=== PATIENT | female | born 1940 | race Caucasian/White ===

== ENCOUNTER → 2018-05-23 09:30 | Outpatient (CLI) | payer MEDICARE, OTHER, SELFPAY ==
[2018-05-23 10:28] LABS: Add Manual Diff / Slide Review NO; Basophils Percent Auto 1.2 % (0-2); Eosinophils Percent Auto 2.4 % (2-4); Hematocrit 38.8 % (36-46); Hemoglobin 13.1 g/dL (12.0-16.0); Lymphocytes Percent Auto 24.6 % (25-40); Mean Corpuscular HGB Conc 33.9 % (30-36); Mean Corpuscular Hemoglobin 31.5 PG (26-34); Monocytes Percent Auto 11.5 % (3-14); Neutrophils Absolute Auto 3500 /uL (3000-5900); Neutrophils Percent Auto 60.3 % (50-75); Platelet Count 284 X10^3/uL (150-400); Red Blood Cell Count 4.17 X10^6/uL (4.0-5.2); Red Cell Distribution Width 12.5 % (11.6-14.8); White Blood Cell Count 5.8 X10^3/uL (4.5-11.0)
[2018-05-23 11:03] LABS: Alanine Aminotransferase 26 IU/L (9-52); Albumin 4.5 g/dL (3.5-5.0); Albumin Globulin Ratio 1.3 (1.0-2.8); Alkaline Phosphatase 94 U/L (38-126); Aspartate Aminotransferase 25 IU/L (14-36); BUN Creatinine Ratio 21.3 (6-22); Bilirubin Total 0.7 mg/dL (0.2-1.3); Blood Urea Nitrogen 17 mg/dL (7-17); Calcium 9.9 mg/dL (8.4-10.2); Carbon Dioxide 29 mmol/L (22-32); Chloride 98 mmol/L (98-107); Cholesterol 228 mg/dL (140-199); Estimated Glomerular Filt Rate > 60.0 mL/min (>60); Globulin 3.4 g/dL (1.7-4.1); Glucose 95 mg/dL (80-110); HDL Cholesterol 85 mg/dL (40-60); HEMOLYSIS < 15 (0-50); LDL Cholesterol Calculated 128 mg/dL (<100); Potassium 5.3 mmol/L (3.4-5.1); Sodium 137 mmol/L (137-145); Total Protein 7.9 g/dL (6.3-8.2); Triglycerides 77 mg/dL (35-150)
[2018-05-23 11:32] LABS: TSH w/ Reflex to FT4 2.24 uIU/mL (0.47-4.68)
== END ==
PROVIDERS: PCP Family Medicine; Visit Provider Family Medicine
DX: E03.9 Hypothyroidism, unspecified (principal); E78.5 Hyperlipidemia, unspecified; I10 Essential (primary) hypertension
CPT/HCPCS: 36415; 80053; 80061; 84443; 85025

== ENCOUNTER → 2018-08-24 15:00 | Outpatient (CLI) | payer MEDICARE, OTHER, SELFPAY | PROVIDERS: Family Provider Family Medicine; PCP Family Medicine | DX: Z23 Encounter for immunization (principal) | CPT/HCPCS: 90471; 90662 ==

== ENCOUNTER → 2018-11-30 10:56 | Outpatient (CLI) | payer MEDICARE, OTHER, SELFPAY ==
--- NOTE | 2018-11-30 10:30 | DI.MG.S_ITS ---
Patient Name: YOLIE MAE date: 1940 Sex: F Attending Physician: Maxim Indications: Date: 11/30/2018 11:10 At the request of: BRANDI HELMS Procedure: MM screening mammo unilat LT UNILATERAL LEFT DIGITAL SCREENING MAMMOGRAM 3D/2D WITH CAD POST MASTECTOMY: 11/30/2018 CLINICAL: Routine screening. Personal history of breast cancer; status post right mastectomy. Comparison is made to exams dated: 11/01/2017 mammogram, 10/07/2016 mammogram, and 10/06/2015 mammogram - [facility]. There are scattered fibroglandular elements in left breast. Current study was also evaluated with a Computer Aided Detection (CAD) system. There are stable benign vascular calcifications in the left breast. No significant masses, calcifications, or other findings are seen in the breast. There has been no significant interval change. IMPRESSION: There is no mammographic evidence of malignancy. A 1 year screening mammogram is recommended. This exam was interpreted at Station ID: [id number]. NOTE: For mammograms, a report in lay terms will be sent to the patient. Approximately 15% of breast malignancies will not be visualized mammographically. In the management of a palpable breast mass, a negative mammogram must not discourage biopsy of a clinically suspicious lesion. Electronically Signed By: Erick han/soila:11/30/2018 11:49:56 letter sent: Normal Exam ACR BI-RADS Category 2: Benign Finding(s) 3342F
== END ==
PROVIDERS: PCP Family Medicine; Visit Provider Family Medicine
DX: Z12.31 Encounter for screening mammogram for malignant neoplasm of breast (principal); Z85.3 Personal history of malignant neoplasm of breast
CPT/HCPCS: 77063; 77067

== ENCOUNTER → 2018-12-01 09:27 | Outpatient (CLI) | payer MEDICARE, OTHER, SELFPAY ==
--- NOTE | 2018-12-01 09:38 | DI.CT.S_ITS ---
PROCEDURE: CT SINUS SCREEN WO CON INDICATIONS: sinus pain TECHNIQUE: Noncontrast 3.0 mm axial images acquired from the frontal sinuses to the mid-sella, with coronal and sagittal reformats. For radiation dose reduction, the following was used: automated exposure control, adjustment of mA and/or kV according to patient size. COMPARISON: None. FINDINGS: Image quality: Excellent. Maxillary Sinuses: No bony remodeling or destruction. Sinuses are clear. Ethmoid Air Cells: No bony remodeling or destruction. Sinuses are clear. Sphenoid Sinuses: No bony remodeling or destruction. Mild mucosal thickening can be seen within the sphenoid sinuses. Frontal Sinuses: The frontal sinuses are poorly developed. Ostiomeatal Complexes: Ostiomeatal complexes are patent. No Kirsten cells. Miscellaneous: Visualized intra-orbital contents are normal. The right middle turbinate is deviated laterally. There is moderate leftward nasal septal deviation. IMPRESSION: Mild mucosal thickening within sphenoid sinuses. There is moderate leftward nasal septal deviation and the right middle turbinate is deviated laterally. Dictated by: Guillaume Paez M.D. on 12/01/2018 at 9:22 Approved by: Guillaume Paez M.D. on 12/01/2018 at 9:24
== END ==
PROVIDERS: Family Provider Family Medicine; PCP Family Medicine; Visit Provider Family Medicine
DX: J32.3 Chronic sphenoidal sinusitis (principal); J34.2 Deviated nasal septum
CPT/HCPCS: 70486

== ENCOUNTER → 2019-02-14 11:45 | Outpatient (CLI) | payer MEDICARE, OTHER, SELFPAY ==
[2019-02-14 12:37] LABS: Erythrocyte Sedimentation Rate 16 MM/HR (0-20)
== END ==
PROVIDERS: Family Provider Family Medicine; PCP Family Medicine; Visit Provider Family Medicine
DX: R51 Headache (principal)
CPT/HCPCS: 36415; 85651

== ENCOUNTER → 2019-02-21 18:41 | Outpatient (CLI) | payer MEDICARE, OTHER, SELFPAY ==
--- NOTE | 2019-02-21 18:42 | DI.MRI.S_ITS ---
PROCEDURE: MR HEAD/BRAIN WO CON INDICATIONS: daily headaches TECHNIQUE: Non-contrast axial T1 spin echo, axial T2 fast spin echo, sagittal and axial FLAIR, coronal T2 fast spin echo, axial gradient echo, axial diffusion and ADC through the brain. COMPARISON: [facility], CT, CT SINUS SCREEN WO CON, 12/01/2018, 9:29. FINDINGS: Image quality: Excellent. CSF spaces: Ventricles appear symmetric in size and shape. Basal cisterns are patent. No extra-axial fluid collections. 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 Old lacunar infarcts noted in the left insula and right thalamus. No intracranial bleeds or mass effects. There is mild cerebral volume loss for age. There are mild periventricular and deep white matter chronic small vessel ischemic changes. Brainstem appears normal. Diffusion-weighted images show no acute ischemic insults. No chronic ischemic insults. Normal intravascular flow voids are present. Skull and face: Calvarial bone marrow is normal in signal. Orbits are normal. Sinuses: There is ethmoid sinus because of thickening. Mastoids are clear. IMPRESSION: 1. No acute intracranial abnormalities. 2. 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 In addition, there are old lacunar infarcts in the left insula and right thalamus. 3. Mild cerebral volume loss and chronic microvascular ischemic changes. Dictated by: Jay Coley M.D. on 02/22/2019 at 8:59 Approved by: Jay Coley M.D. on 02/22/2019 at 9:05
== END ==
PROVIDERS: Family Provider Family Medicine; PCP Family Medicine; Visit Provider Family Medicine
DX: R51 Headache (principal)
CPT/HCPCS: 70551

== ENCOUNTER → 2019-06-08 09:23 | Outpatient (CLI) | payer MEDICARE, OTHER, SELFPAY ==
[2019-06-08 10:07] LABS: Add Manual Diff / Slide Review NO; Basophils Absolute Auto 100 /uL (0-100); Basophils Percent Auto 1.2 % (0-2); Eosinophils Absolute Auto 100 /uL (0-450); Eosinophils Percent Auto 2.6 % (2-4); Hematocrit 38.1 % (36-46); Hemoglobin 12.9 g/dL (12.0-16.0); Lymphocytes Absolute Auto 1400 /uL (1100-4500); Lymphocytes Percent Auto 25.6 % (25-40); Mean Corpuscular Hemoglobin 31.5 PG (26-34); Mean Corpuscular Volume 92.8 fL (80-100); Monocytes Absolute Auto 500 /uL (0-900); Monocytes Percent Auto 9.8 % (3-14); Neutrophils Absolute Auto 3400 /uL (1500-7000); Neutrophils Percent Auto 60.8 % (50-75); Platelet Count 256 X10^3/uL (150-400); White Blood Cell Count 5.6 X10^3/uL (4.5-11.0)
[2019-06-08 10:33] LABS: Alanine Aminotransferase 18 IU/L (9-52); Albumin 4.3 g/dL (3.5-5.0); Albumin Globulin Ratio 1.4 (1.0-2.8); Alkaline Phosphatase 94 U/L (38-126); Aspartate Aminotransferase 25 IU/L (14-36); BUN Creatinine Ratio 26.3 (6-22); Bilirubin Total 0.8 mg/dL (0.2-1.3); Blood Urea Nitrogen 21 mg/dL (7-17); Calcium 10.2 mg/dL (8.4-10.2); Carbon Dioxide 27 mmol/L (22-32); Chloride 103 mmol/L (98-107); Cholesterol 269 mg/dL (140-199); Estimated Glomerular Filt Rate > 60.0 mL/min (>60); Globulin 3.1 g/dL (1.7-4.1); Glucose 91 mg/dL (80-110); HDL Cholesterol 78 mg/dL (40-60); LDL Cholesterol Calculated 162 mg/dL (<100); Sodium 138 mmol/L (137-145); Total Protein 7.4 g/dL (6.3-8.2); Triglycerides 144 mg/dL (35-150)
[2019-06-08 10:51] LABS: HEMOLYSIS < 15 (0-50); Potassium 5.6 mmol/L (3.4-5.1)
[2019-06-08 11:02] LABS: Thyroid Stimulating Hormone 2.79 uIU/mL (0.47-4.68)
== END ==
PROVIDERS: PCP Family Medicine; Visit Provider Family Medicine
DX: E03.9 Hypothyroidism, unspecified (principal); E78.5 Hyperlipidemia, unspecified; I10 Essential (primary) hypertension
CPT/HCPCS: 36415; 80053; 80061; 84443; 85025

== ENCOUNTER → 2019-06-12 11:57 | Outpatient (CLI) | payer MEDICARE, OTHER, SELFPAY ==
[2019-06-12 12:31] LABS: BUN Creatinine Ratio 21.3 (6-22); Blood Urea Nitrogen 17 mg/dL (7-17); Calcium 9.8 mg/dL (8.4-10.2); Carbon Dioxide 29 mmol/L (22-32); Chloride 99 mmol/L (98-107); Estimated Glomerular Filt Rate > 60.0 mL/min (>60); Glucose 92 mg/dL (80-110); HEMOLYSIS < 15 (0-50); Potassium 4.8 mmol/L (3.4-5.1); Sodium 137 mmol/L (137-145)
== END ==
PROVIDERS: PCP Family Medicine; Visit Provider Family Medicine
DX: E87.5 Hyperkalemia (principal)
CPT/HCPCS: 36415; 80048

== ENCOUNTER 2019-08-02 08:21 | Emergency (ER) | payer MEDICARE, OTHER, SELFPAY ==
[2019-08-02] VITALS (8 sets, daily range): BP systolic 156–179; BP diastolic 69–92; PULSE 54–85; RESP 12–16; TEMP 36.1–36.7; O2SAT 95–100; BMI 23.8
--- NOTE | 2019-08-02 08:32 | DI.RAD.S_ITS ---
PROCEDURE: XR CHEST 1V INDICATIONS: chest pain TECHNIQUE: One view of the chest was acquired. COMPARISON: [facility], CHEST 2 VIEW, 03/04/2009, 10:44. [facility], CHEST 1 VIEW, 06/26/2013, 17:03. FINDINGS: Surgical changes and devices: Surgical clips over right hemithorax. Lungs and pleura: Lungs are clear. No pleural effusions or pneumothorax. Mediastinum: Mediastinal contours appear normal. Heart size is normal. Bones and chest wall: No suspicious bony lesions. Overlying soft tissues appear unremarkable. IMPRESSION: No evidence acute pulmonary process. Dictated by: Alessandro Castillo M.D. on 08/02/2019 at 9:21 Approved by: Alessandro Castillo M.D. on 08/02/2019 at 9:22
[2019-08-02 08:44] LABS: Add Manual Diff / Slide Review NO; Basophils Absolute Auto 100 /uL (0-100); Basophils Percent Auto 0.6 % (0-2); Eosinophils Absolute Auto 100 /uL (0-450); Hematocrit 36.7 % (36-46); Hemoglobin 12.3 g/dL (12.0-16.0); Lymphocytes Absolute Auto 2300 /uL (1100-4500); Lymphocytes Percent Auto 23.1 % (25-40); Mean Corpuscular HGB Conc 33.5 % (30-36); Mean Corpuscular Hemoglobin 31.5 PG (26-34); Mean Corpuscular Volume 94.1 fL (80-100); Monocytes Absolute Auto 800 /uL (0-900); Monocytes Percent Auto 8.4 % (3-14); Neutrophils Absolute Auto 6500 /uL (1500-7000); Neutrophils Percent Auto 66.9 % (50-75); Platelet Count 267 X10^3/uL (150-400); Red Cell Distribution Width 13.1 % (11.6-14.8); White Blood Cell Count 9.8 X10^3/uL (4.5-11.0)
[2019-08-02 08:50] LABS: INR 0.9 (0.9-1.3)
[2019-08-02 08:53] LABS: PTT Partial Thromboplastin Tim 30 SECONDS (26.4-36.2)
[2019-08-02 08:57] LABS: Bacteria Urine None Seen; RBC Urine None Seen (0-5/HPF)
[2019-08-02 09:01] LABS: Alanine Aminotransferase 15 IU/L (9-52); Albumin 4.5 g/dL (3.5-5.0); Albumin Globulin Ratio 1.4 (1.0-2.8); Alkaline Phosphatase 79 U/L (38-126); Aspartate Aminotransferase 27 IU/L (14-36); Bilirubin Total 0.8 mg/dL (0.2-1.3); Blood Urea Nitrogen 24 mg/dL (7-17); Calcium 9.7 mg/dL (8.4-10.2); Carbon Dioxide 25 mmol/L (22-32); Chloride 102 mmol/L (98-107); Creatine Kinase 49 U/L (30-135); Estimated Glomerular Filt Rate > 60.0 mL/min (>60); Globulin 3.3 g/dL (1.7-4.1); Glucose 86 mg/dL (80-110); HEMOLYSIS 43 (0-50); Lipase 155 U/L (23-300); Potassium 4.3 mmol/L (3.4-5.1); Sodium 139 mmol/L (137-145); Total Protein 7.8 g/dL (6.3-8.2)
[2019-08-02 09:08] LABS: Culture Indicated Urine Cult Not Indicated; Transitional Epi Cells Urine 1-5/HPF (0-5/HPF); WBC Urine 1-5/HPF (0-5/HPF)
[2019-08-02 09:13] LABS: Troponin I < 0.012 ng/mL (0.01-0.034)
--- NOTE | 2019-08-02 09:28 | ED_ITS ---
HPI - Chest Pain General Chief Complaint: Chest Pain Stated Complaint: upper abdominal pain, chills, HBP Time Seen by Provider: 08/02/19 08:40 Source: patient Mode of arrival: ambulatory Limitations: no limitations History of Present Illness HPI narrative: Patient comes emergency department complaining pain in her left upper abdomen/lower chest, though she does states she feels the pain is coming more from her stomach than from her chest. She states that she does feel the pain wrap around to her back somewhat, but it is mostly in the front. This has been going on for about 3 days. Patient denies fevers or chills, cough, shortness of breath, or upper respiratory symptoms. She denies any nausea vomiting. Patient states she has no known history of heart problems or peptic ulcer disease. She does have a history of reflux occasionally. Patient denies any diarrhea. No blood in her stools or melena. No history of gallbladder issues. Patient denies any exacerbating or remitting factors. She states that the pain seems to wax and wane, but has been fairly constant for the last 3 days. No prior history of this. No other complaints at this time. Patient denies any history of diabetes. 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 She is currently on losartan for high blood pressure, but denies a diagnosis of hyperlipidemia, though she does note that her last cholesterol levels were borderline. Patient denies family history of coronary artery disease. Related Data Home Medications Medication Instructions Recorded Confirmed calcium carbonate 500 mg PO DAILY #0 03/28/12 08/02/19 cholecalciferol (vitamin D3) 2,000 unit PO DAILY #0 03/28/12 08/02/19 [Vitamin D3] aspirin 81 mg tablet,delayed 81 mg PO DAILY 04/24/19 08/02/19 release levothyroxine 50 mcg PO DAILY 08/02/19 08/02/19 prednisone See Rx Instructions .ROUTE .COMPLEX 08/02/19 08/02/19 Previous Rx's Medication Instructions Recorded losartan 50 mg tablet 50 mg PO DAILY #90 tab 06/11/19 sertraline 50 mg tablet 50 mg PO DAILY #90 tab 06/11/19 omeprazole 20 mg PO DAILY #14 cap 08/02/19 Allergies Allergy/AdvReac Type Severity Reaction Status Date / Time No Known Drug Allergies Allergy Verified 08/02/19 08:30 Review of Systems Constitutional Constitutional: Denies chills, Denies fatigue, Denies fever(s), Denies frequent falls, Denies lethargy and Denies weakness Eyes Eyes: Denies change in vision, Denies eye discharge, Denies irritation and Denies loss of vision ENT Ears, Nose, Mouth, and Throat: Denies change in voice, Denies dizziness, Denies neck pain, Denies sore throat and Denies throat swelling Cardiovascular Cardiovascular: Reports chest pain, Denies irregular heart rhythm, Denies lightheadedness, Denies palpitations, Denies dyspnea, Denies dyspnea on exertion and Denies orthopnea Respiratory Respiratory: Denies cough, Denies dyspnea, Denies dyspnea on exertion and Denies wheezing Gastrointestinal Gastrointestinal: Reports abdominal pain, Denies change in bowel habits, Denies diarrhea, Denies nausea and Denies vomiting Genitourinary Genitourinary: Denies hematuria, Denies flank pain, Denies urinary incontinence and Denies urinary urgency Musculoskeletal Musculoskeletal: Denies back pain, Denies muscle weakness, Denies neck pain, Denies numbness and Denies tingling Integumentary/Breasts Skin/Breast: Denies pruritus, Denies erythema, Denies rash and Denies wounds Neurologic Neurologic: Denies behavioral changes, Denies confusion, Denies dizziness, Denies frequent falls, Denies loss of vision, Denies numbness, Denies tingling and Denies weakness Psychiatric Psychiatric: Denies anxiety, Denies behavioral changes, Denies confusion, Denies depression, Denies homicidal ideation and Denies suicidal ideation Endocrine Endocrine: Denies fatigue, Denies flushing and Denies palpitations Hematologic/Lymphatic Hematologic/Lymphatic: Denies easy bruising Allergic/Immunologic Allergic/Immunologic: Denies urticaria, Denies throat swelling and Denies wheezing [facility] Medical History (Updated 08/02/19 @ 12:17 by Airam Jones MD) Breast cancer (Chronic ~1987) Chicken pox (Resolved) Depression (Chronic ~2000) Hypertension (Chronic ~2009) Hypothyroidism (Chronic ~1998) Measles (Resolved) Osteoarthritis (Chronic ~2005) Osteopenia (Chronic) Osteoporosis (Chronic ~2010) Psoriasis (Chronic ~1979) Surgical History (Updated 05/26/18 @ 08:29 by Lynnette Hua) Anesthesia (Resolved) History of breast augmentation Status post partial mastectomy (~1987) Status post thoracotomy (~1995) Status post tubal ligation (~1978) Status post wrist surgery (Resolved) Family History (Updated 05/26/18 @ 08:33 by Lynnette Hua) Father Hypertension Cerebral hemorrhage Mother Alzheimers disease Grandfather Diabetes mellitus Grandmother Stroke Sister Age: 68 Breast cancer Grandfather TB (tuberculosis) Social History Smoking Status: Never smoker alcohol intake: current substance use type: does not use Family History (Updated 05/26/18 @ 08:33 by Lynnette Hua) Father Hypertension Cerebral hemorrhage Mother Alzheimers disease Grandfather Diabetes mellitus Grandmother Stroke Sister Age: 68 Breast cancer Grandfather TB (tuberculosis) Social History Smoking Status: Never smoker alcohol intake: current substance use type: does not use Exam Initial Vital Signs Initial Vital Signs: Vital Signs Temperature 97.0 F L 08/02/19 08:30 Pulse Rate 85 08/02/19 08:30 Respiratory Rate 16 08/02/19 08:30 Blood Pressure 177/89 H 08/02/19 08:30 Const General: cooperative and well developed Nutritional Appearance: well nourished Orientation: alert, awake, oriented x3 and not confused [facility] Head: normocephalic and atraumatic Ears: external ears normal Nose: external nose normal and No nasal discharge Face and sinus: face symmetric and No dry mucous membranes Mouth: oral mucosae normal and moist mucous membranes Teeth and gingiva: dentition normal Eyes General: appearance normal, both eyes and all related structures Eyelids: eyelids normal Conjunctivae: conjunctivae normal Sclera: sclerae normal Pupils: PERRL EOM: EOM intact bilaterally Neck Neck: normal visual inspection, trachea midline, No lymphadenopathy, No midline deformity and No JVD Lymphatic: No lymphedema Chest Chest: normal inspection of the chest Resp Effort & Inspection: normal respiratory effort, able to speak in complete sentences, no respiratory distress and no use of accessory muscles Auscultation: clear to auscultation bilaterally, no rales, no rhonchi and no wheezes Cardio Rate: regular rate Rhythm: regular rhythm Heart Sounds: no click, no gallops, no murmurs and no rubs Pulses: normal peripheral pulses GI Inspection: non-distended Palpation: soft, no hepatosplenomegaly, No guarding, No pulsatile mass and tender (Mild, left upper quadrant) Auscultation: normal bowel sounds Back/Spine/Pelvis Back: No CVA tenderness Cervical Spine: cervical ROM normal and No pain with cervical ROM Thoracic/Lumbar Spine: thoracic and lumbar spine normal to inspection Skin General: no rashes or lesions noted, No jaundice and No petechiae Neuro General: alert, oriented x3, gait normal and no focal motor deficits Speech: speech normal Extrem General: full ROM, no clubbing, cyanosis or edema, no pedal edema and no calf tenderness Psych Appearance: well kempt Mental Status: mental status grossly normal Attitude: cooperative Thought Content: normal and suicidality Judgment: judgment good Course Course Course Narrative: Patient was worked up with labs initially. She declined any analgesia in the emergency department. Labs were unremarkable. CT scan of the abdomen and pelvis was performed to further evaluate the patient's symptoms, and this showed a nonspecific left lung nodule and a small and of uncertain significance, but not felt to likely be malignant by radiologist. I did inform the patient of this finding. Patient was also noted to have a thickened portion of her large bowel wall, but the significance of this is uncertain. Radiologist did note this could be normal physiologic finding. I discussed both findings with the patient. The patient has been afebrile and without any symptoms of illness beyond the upper abdominal/lower chest pain. She has not had any diarrhea or blood in her stools, and at this point, I am not going to treat this as colitis. The patient did have a repeat troponin done and this was also negative. I discussed with the patient that it is likely a good idea to follow up in the near future with her primary care physician to discuss referral for EGD and also, to have a stress test scheduled. Patient states she will do this. We have discussed home management of symptoms, as well as the usual indications for return. Orders Ordered: ED Orders 08/02/19 08:29 EKG-12 Lead Stat 08/02/19 08:30 Complete Blood Count AUTO DIFF Stat Comprehensive Metabolic Panel Stat Lipase Stat Partial Thromboplastin Time Stat Prothrombin Time INR Stat Troponin & CK Cardiac Panel Stat Urine Microscopic Stat 08/02/19 08:32 XR chest 1V Stat Vital Signs Vital signs: Vital Signs - 8 hr 08/02/19 08:30 08/02/19 08:43 08/02/19 09:00 Temperature 97.0 F L 98.0 F Pulse Rate 85 60 Respiratory Rate 16 16 Blood Pressure 177/89 H Blood Pressure [Right Arm] 179/92 H Pulse Oximetry 98 100 MDM - Chest Pain Medical Records Data Attestation: I reviewed the patient's medical records. Lab Data Attestation: I reviewed the patient's lab results. Result diagrams: 08/02/19 08:30 08/02/19 08:30 Labs: Lab Results 08/02/19 08/02/19 08/02/19 Range/Units 08:30 08:30 08:30 WBC 9.8 (4.5-11.0) X10^3/uL RBC 3.90 L (4.0-5.2) X10^6/uL Hgb 12.3 (12.0-16.0) g/dL Hct 36.7 (36-46) % MCV 94.1 (80-100) fL MCH 31.5 (26-34) PG MCHC 33.5 (30-36) % RDW 13.1 (11.6-14.8) % Plt Count 267 (150-400) X10^3/uL Neut % (Auto) 66.9 (50-75) % Lymph % (Auto) 23.1 L (25-40) % [place] % (Auto) 8.4 (3-14) % Eos % (Auto) 1.0 L (2-4) % Baso % (Auto) 0.6 (0-2) % Neut # (Auto) 6500 (4715-7096) /uL Lymph # (Auto) 2300 (9531-0869) /uL [place] # (Auto) 800 (0-900) /uL Eos # (Auto) 100 (0-450) /uL Baso # (Auto) 100 (0-100) /uL PT 10.0 L (10.1-12.7) SECONDS INR 0.9 (0.9-1.3) APTT 30 (26.4-36.2) SECONDS Sodium 139 (137-145) mmol/L Potassium 4.3 (3.4-5.1) mmol/L Chloride 102 (98-107) mmol/L Carbon Dioxide 25 (22-32) mmol/L BUN 24 H (7-17) mg/dL Creatinine 0.80 (0.52-1.04) mg/dL Estimated GFR > 60.0 (>60) mL/min BUN/Creatinine Ratio 30.0 H (6-22) Glucose 86 (80-110) mg/dL Calcium 9.7 (8.4-10.2) mg/dL Total Bilirubin 0.8 (0.2-1.3) mg/dL AST 27 (14-36) IU/L ALT 15 (9-52) IU/L Alkaline Phosphatase 79 (38-126) U/L Total Creatine Kinase 49 (30-135) U/L CK-MB (CK-2) TNP CK-MB (CK-2) Rel Index TNP Troponin I < 0.012 (0.01-0.034) ng/mL Total Protein 7.8 (6.3-8.2) g/dL Albumin 4.5 (3.5-5.0) g/dL Globulin 3.3 (1.7-4.1) g/dL Albumin/Globulin Ratio 1.4 (1.0-2.8) Lipase 155 (23-300) U/L Urine RBC (0-5/HPF) Urine WBC (0-5/HPF) Ur Transition Epith Cell (0-5/HPF) Urine Bacteria (None) Ur Culture Indicated? 08/02/19 08/02/19 Range/Units 08:30 10:57 WBC (4.5-11.0) X10^3/uL RBC (4.0-5.2) X10^6/uL Hgb (12.0-16.0) g/dL Hct (36-46) % MCV (80-100) fL MCH (26-34) PG MCHC (30-36) % RDW (11.6-14.8) % Plt Count (150-400) X10^3/uL Neut % (Auto) (50-75) % Lymph % (Auto) (25-40) % [place] % (Auto) (3-14) % Eos % (Auto) (2-4) % Baso % (Auto) (0-2) % Neut # (Auto) (4738-3744) /uL Lymph # (Auto) (8167-7405) /uL [place] # (Auto) (0-900) /uL Eos # (Auto) (0-450) /uL Baso # (Auto) (0-100) /uL PT (10.1-12.7) SECONDS INR (0.9-1.3) APTT (26.4-36.2) SECONDS Sodium (137-145) mmol/L Potassium (3.4-5.1) mmol/L Chloride (98-107) mmol/L Carbon Dioxide (22-32) mmol/L BUN (7-17) mg/dL Creatinine (0.52-1.04) mg/dL Estimated GFR (>60) mL/min BUN/Creatinine Ratio (6-22) Glucose (80-110) mg/dL Calcium (8.4-10.2) mg/dL Total Bilirubin (0.2-1.3) mg/dL AST (14-36) IU/L ALT (9-52) IU/L Alkaline Phosphatase (38-126) U/L Total Creatine Kinase (30-135) U/L CK-MB (CK-2) CK-MB (CK-2) Rel Index Troponin I < 0.012 (0.01-0.034) ng/mL Total Protein (6.3-8.2) g/dL Albumin (3.5-5.0) g/dL Globulin (1.7-4.1) g/dL Albumin/Globulin Ratio (1.0-2.8) Lipase (23-300) U/L Urine RBC None seen (0-5/HPF) Urine WBC 1-5/hpf (0-5/HPF) Ur Transition Epith Cell 1-5/hpf (0-5/HPF) Urine Bacteria None seen (None) Ur Culture Indicated? Cult not indicated Urine Dip Bedside Urine Glucose Negative Bedside Urine Bilirubin - Negative Bedside Urine Ketone - Negative Urine Specific [place] 1.015 Bedside Urine Occult Blood - Negative Bedside Urine pH 6.5 Bedside Urine Protein +/- 15 Bedside Urine Urobilinogen - Negative Bedside Urine Nitrite - Negative Bedside Urine Leukocytes + [address] scan - abdomen: Radiologist's impression: PROCEDURE: CT ABDOMEN PELVIS W CON INDICATIONS: L side abdominal pain TECHNIQUE: After the administration of intravenous contrast, 5 mm thick sections acquired from the diaphragm to the symphysis. 5 mm coronal and sagittal reformats were acquired. For radiation dose reduction, the following was used: automated exposure control, adjustment of mA and/or kV according to patient size. COMPARISON: None. FINDINGS: Image quality: Excellent. ABDOMEN: Lung bases: There is an ill-defined groundglass nodular opacity along the left major fissure on series 3 image 2. Solid organs: Liver is enlarged with steatosis. Gallbladder unremarkable. Biliary system is non dilated. Pancreas enhances normally. Spleen is normal in size and enhancement. No adrenal nodules. Kidneys demonstrate normal size and enhancement, without hydronephrosis. Peritoneum and bowel: Bowel loops are nonobstructive. There is thickening and poor distention of the descending and sigmoid colon. Nodes and vessels: No retroperitoneal or mesenteric adenopathy by size criteria . Aorta and inferior vena cava are normal in size. Miscellaneous: No ventral hernias. Mild hiatal hernia. PELVIS: Genitourinary: Bladder wall thickness is normal. Miscellaneous: No inguinal hernias or adenopathy. Bones: No suspicious bony lesions. No vertebral body compression fractures. IMPRESSION: 1. Thickened appearance of the descending and sigmoid colon as described above. Wall thickening could be related to inflammation, appearance can be seen with incomplete distention. Recommend correlation with patient's symptoms and interval followup as indicated. 2. 9 mm groundglass nodular opacity overlying the left major fissure. It is nonspecific and no priors are available for comparison. Recommend interval followup lobe based on initial visualization date of today and 9 mm size. Fleischner Society criteria for SUB-SOLID lung nodule followup. Solitary pure ground-glass nodules<6 mm (ground glass or part solid)No followup needed. 6 mm or larger (ground glass)CT at 6-12 months to confirm persistence, then CT every 2 years until 5 years.6 mm or larger (part solid)CT at 3-6 months to confirm persistence, then annual CT until 5 years if unchanged and solid component remains <6 mm. Multiple sub-solid nodules<6 mmCT at 3-6 months, then CT consider at 2 & 4 years for high risk patients. [address] at 3-6 months. Subsequent management based on most suspicious lesions. Recommendations do not apply to lung cancer screening, pat ients with immunosuppression, or patients with known primary cancer. Dictated by: Brenda Dias M.D. on 08/02/2019 at 11:22 Approved by: Brenda Dias M.D. on 08/02/2019 at 11:35 Chest x-ray: Radiologist's impression: PROCEDURE: XR CHEST 1V INDICATIONS: chest pain TECHNIQUE: One view of the chest was acquired. COMPARISON: [facility], CHEST 2 VIEW, 03/04/2009, 10:44. [facility], CHEST 1 VIEW, 06/26/2013, 17:03. FINDINGS: Surgical changes and devices: Surgical clips over right hemithorax. Lungs and pleura: Lungs are clear. No pleural effusions or pneumothorax. Mediastinum: Mediastinal contours appear normal. Heart size is normal. Bones and chest wall: No suspicious bony lesions. Overlying soft tissues appear unremarkable. IMPRESSION: No evidence acute pulmonary process. Dictated by: Alessandro Castillo M.D. on 08/02/2019 at 9:21 Approved by: Alessandro Castillo M.D. on 08/02/2019 at 9:22 ECG Data Attestation: I personally reviewed and interpreted this ECG as follows: (See below) Interpretation: Twelve lead EKG performed August 02, 2019 at 8:29 a.m., as follows: Regular ventricular rhythm with a rate of 78 beats per minute LA interval 184 milliseconds QRS duration 87 millisecond QTC interval [address] T wave changes Occasional ectopy Interpretation: Normal sinus rhythm with premature ventricular complexes and occasional supraventricular premature complexes; no signs of acute ischemia; abnormal rhythm EKG as interpreted by EDMD. Discharge Plan Departure Patient Disposition: Home Clinical Impression: Atypical chest pain Abdominal pain Qualifiers: Abdominal location: left upper quadrant Qualified Code(s): R10.12 - Left upper quadrant pain Discharge Date/Time: 08/02/19 12:27 Instructions: DI for Abdominal Pain-Adult, DI for Chest Pain Activity Restrictions/Additional Instructions: Your labs, including repeat cardiac enzymes, look good. Your CT scan does not show any intra-abdominal pathology. You have a small left lung nodule which will need to be followed with repeat imaging, at this point about once a year. This is a nonspecific finding, and there is no evidence of cancer at this time. It is advisable for you to follow up with your primary care physician to schedule a stress test, and also, to discuss referral for endoscopy to see if you have developed inflammation of the lining of your stomach or possibly, even an ulcer. At this point in time, there is no evidence of a heart attack, lung infection, or blood clot. If you develop severe shortness of breath, severe abdominal pain, or any other significantly worsening symptoms, please return to the emergency department immediately. Prescriptions: New omeprazole 20 mg capsule,delayed release(DR/EC) 20 mg PO DAILY Qty: 14 RF: 0 No Action losartan [Cozaar] 50 mg tablet 50 mg PO DAILY Qty: 90 RF: 3 sertraline [Zoloft] 50 mg tablet 50 mg PO DAILY Qty: 90 RF: 3 cholecalciferol (vitamin D3) [Vitamin D3] 2,000 unit Capsule 2,000 unit PO DAILY Qty: 0 RF: 0 calcium carbonate 500 mg calcium (1,250 mg) Tablet 500 mg PO DAILY Qty: 0 RF: 0 aspirin [Adult Low Dose Aspirin] 81 mg tablet,delayed release (DR/EC) 81 mg PO DAILY RF: 0 prednisone 10 mg tablet See Rx Instructions .ROUTE .COMPLEX RF: 0 levothyroxine 50 mcg tablet 50 mcg PO DAILY RF: 0 Referrals: Waqas Pan MD [Primary Care Provider] -
--- NOTE | 2019-08-02 10:11 | PC.NURSE ---
pt son is back to the room. pt states her upper left chest pain is increasing, will report to dr. cruz.
--- NOTE | 2019-08-02 10:44 | DI.CT.S_ITS ---
PROCEDURE: CT ABDOMEN PELVIS W CON INDICATIONS: L side abdominal pain TECHNIQUE: After the administration of intravenous contrast, 5 mm thick sections acquired from the diaphragm to the symphysis. 5 mm coronal and sagittal reformats were acquired. For radiation dose reduction, the following was used: automated exposure control, adjustment of mA and/or kV according to patient size. COMPARISON: None. FINDINGS: Image quality: Excellent. ABDOMEN: Lung bases: There is an ill-defined groundglass nodular opacity along the left major fissure on series 3 image 2. Solid organs: Liver is enlarged with steatosis. Gallbladder unremarkable. Biliary system is non dilated. Pancreas enhances normally. Spleen is normal in size and enhancement. No adrenal nodules. Kidneys demonstrate normal size and enhancement, without hydronephrosis. Peritoneum and bowel: Bowel loops are nonobstructive. There is thickening and poor distention of the descending and sigmoid colon. Nodes and vessels: No retroperitoneal or mesenteric adenopathy by size criteria. Aorta and inferior vena cava are normal in size. Miscellaneous: No ventral hernias. Mild hiatal hernia. PELVIS: Genitourinary: Bladder wall thickness is normal. Miscellaneous: No inguinal hernias or adenopathy. Bones: No suspicious bony lesions. No vertebral body compression fractures. IMPRESSION: 1. Thickened appearance of the descending and sigmoid colon as described above. Wall thickening could be related to inflammation, appearance can be seen with incomplete distention. Recommend correlation with patient's symptoms and interval followup as indicated. 2. 9 mm groundglass nodular opacity overlying the left major fissure. It is nonspecific and no priors are available for comparison. Recommend interval followup lobe based on initial visualization date of today and 9 mm size. Fleischner Society criteria for SUB-SOLID lung nodule followup. Solitary pure ground-glass nodules<6 mm (ground glass or part solid)No followup needed. 6 mm or larger (ground glass)CT at 6-12 months to confirm persistence, then CT every 2 years until 5 years.6 mm or larger (part solid)CT at 3-6 months to confirm persistence, then annual CT until 5 years if unchanged and solid component remains <6 mm. Multiple sub-solid nodules<6 mmCT at 3-6 months, then CT consider at 2 & 4 years for high risk patients. [address] at 3-6 months. Subsequent management based on most suspicious lesions. Recommendations do not apply to lung cancer screening, patients with immunosuppression, or patients with known primary cancer. Dictated by: Brenda Dias M.D. on 08/02/2019 at 11:22 Approved by: Brenda Dias M.D. on 08/02/2019 at 11:35
[2019-08-02 11:25] LABS: Troponin I < 0.012 ng/mL (0.01-0.034)
== END 2019-08-02 12:27 | disposition home or self-care (01) ==
PROVIDERS: Emergency Provider Emergency Medicine; PCP Family Medicine
DX: R07.89 Other chest pain (principal); R10.12 Left upper quadrant pain
CPT/HCPCS: 36591; 71045; 74177; 80053; 81003; 81015; 82550; 83690; 84484; 85025; 85610; 85730; 93005; 93010; 99283; 99285; Q9967

== ENCOUNTER → 2019-09-13 15:13 | Outpatient (CLI) | payer MEDICARE, OTHER, SELFPAY | PROVIDERS: PCP Family Medicine | DX: Z23 Encounter for immunization (principal) | CPT/HCPCS: 90471; 90662 ==

== ENCOUNTER 2019-11-29 13:29 | Day surgery (SDC) | payer MEDICARE, OTHER, SELFPAY ==
--- NOTE | 2019-11-29 | PATH_ITS ---
[facility] Accession Number: [id number] . 01 Material submitted: . gastrointestinal site - GASTRIC BIOPSY . 01 Clinical history: . COLONOSCOPY EGD . 02 Diagnosis: Stomach, Biopsy: Gastric antral and body mucosa with mild chronic inflammation. Negative for Helicobacter organisms by immunohistochemistry. Negative for intestinal metaplasia. Negative for dysplasia and malignancy. [facility] 12/04/2019 1318 Local . 02 Electronically signed: . Basilio Loyd MD, PhD, Pathologist NPI- [id number] . 01 Gross description: . GASTRIC BIOPSY: Received in formalin are 3 fragment(s) of edwards, soft tissue measuring 0.3 x 0.2 x 0.1 cm to 0.2 x 0.2 x 0.1 cm submitted entirely in 1 cassette(s) /QBJ 11/30/2019 0504 Local . 02 Microscopic: . An immunohistochemical stain was performed to evaluate for Helicobacter organisms and is negative. The control stain showed appropriate reactivity. . * This test was developed and its performance characteristics determined by [facility]. It has not been cleared or approved by the U.S. Food and Drug Administration. The FDA has determined that such clearance or approval is not necessary. This test is used for clinical purposes. It should not be regarded as investigational or for research. . 02 Pathologist provided ICD-10: K29.70 . 02 CPT . 374519, [id number] Performed at: 01 [facility] [address] [facility], [place], [place] [id number] MD Uriah Barroso MD Phone: [phone] Performed at: 02 [facility] [place] [address] [place], [place] [id number] MD Bindu Padilla MD Phone: [phone]
[2019-11-29] MEDS: SODIUM CHLORIDE 0.9% 1,000 ML 200 ML IV ×2 (13:40→15:26)
[2019-11-29 13:47] VITALS: BP 158/96; PULSE 97; RESP 16; TEMP 36.1; O2SAT 99; BMI 24.0
--- NOTE | 2019-11-29 14:32 | PM.HP.1 ---
History of Present Illness History of Present Illness Date Patient Seen: 11/29/19 Time Patient Seen: 14:33 Chief complaint: [id number] COLONOSCOPY EGD Narrative: Patient presents for colorectal screening. That a prior colonoscopy 10 years ago that was normal. In addition to this that had some mid epigastric pain several months ago for which they were referred for EGD has now subsequently resolved spontaneously. No history of prior peptic ulcer disease. No personal or family history of colon cancer. No nausea, vomiting, loss of appetite, unexplained weight loss, change in bowel habits, diarrhea, constipation, melena, hematochezia, or bright red blood per rectum. Patient History Medical History (Updated 11/29/19 @ 14:35 by Lenin Hernandez MD) Breast cancer (Chronic ~1987) Chicken pox (Resolved) Depression (Chronic ~2000) Hypertension (Chronic ~2009) Hypothyroidism (Chronic ~1998) Measles (Resolved) Osteoarthritis (Chronic ~2005) Osteopenia (Chronic) Osteoporosis (Chronic ~2010) Psoriasis (Chronic ~1979) Surgical History (Updated 05/26/18 @ 08:29 by Lynnette Hua) Anesthesia (Resolved) History of breast augmentation Status post partial mastectomy (~1987) Status post thoracotomy (~1995) Status post tubal ligation (~1978) Status post wrist surgery (Resolved) Family & Social History Family History (Updated 05/26/18 @ 08:33 by Lynnette Hua) Father Hypertension Cerebral hemorrhage Mother Alzheimers disease Grandfather Diabetes mellitus Grandmother Stroke Sister Age: 68 Breast cancer Grandfather TB (tuberculosis) Social History: household members none Tobacco & Substance use: Smoking Status Never smoker alcohol intake current Substance Use Type does not use Meds Home Medications and Allergies Home Medications Medication Instructions Recorded Confirmed Type calcium carbonate 500 mg PO DAILY #0 03/28/12 11/29/19 History cholecalciferol (vitamin D3) 2,000 unit PO DAILY #0 03/28/12 11/29/19 History [Vitamin D3] aspirin 81 mg tablet,delayed 81 mg PO DAILY 04/24/19 11/29/19 History release losartan 50 mg tablet 50 mg PO DAILY #90 tab 06/11/19 11/29/19 Rx sertraline 50 mg tablet 50 mg PO DAILY #90 tab 06/11/19 11/29/19 Rx levothyroxine 50 mcg PO DAILY 08/02/19 11/29/19 History Allergies Allergy/AdvReac Type Severity Reaction Status Date / Time No Known Drug Allergies Allergy Verified 11/29/19 13:26 Review of Systems Review of Systems Narrative: A 10 point review of systems is negative except as noted in the HPI Exam Vital Signs (past 8 hours): - 11/29/19 13:47 Temperature 96.9 F L Pulse Rate 97 H Respiratory Rate 16 Blood Pressure 158/96 H Pulse Oximetry 99 Oxygen Delivery Method Room Air Narrative Exam Narrative: General-no acute distress, well nourished HEENT-moist mucous membranes, no scleral icterus Neck-supple, no lymphadenopathy Chest- non labored respirations, clear to auscultation bilaterally Cardiac-regular rate no peripheral edema Abdomen-soft, nontender, non distended Extremities-warm, well perfused Neurological-alert and oriented, no focal deficits Assessment & Plan Assessment and plan (1) Screening for colon cancer: Current visit: Yes Status: Acute Assessment & Plan narrative: The patient requires colorectal screening and colonoscopy is recommended. In addition they have recent epigastric pain with unknown etiology for which EGD is indicated. Technical details were discussed. Risks, benefits, alternatives explained. Risks including but not limited to myocardial infarction, aspiration, bleeding, pain, missed lesion, incomplete examination, need for further radiographic studies, colonic perforation, and need for major abdominal surgery were discussed. All questions were answered to their satisfaction, and they are in agreement with this plan.
--- NOTE | 2019-11-29 15:19 | PM.OP.ENDO ---
Operative Date/Time/Diagnoses Date of procedure: 11/29/19 Time of procedure: 15:19 Pre-op diagnosis: Screening colonoscopy, epigastric pain Post-op diagnosis: same Procedure & Clinicians Study performed: Esophagoduodenoscopy Colonoscopy Same procedure as scheduled: Yes Indications: This Is a 79-year-old female with last colonoscopy 10 years ago normal presents for screening. In addition she has epigastric pain of unclear etiology for which she is undergoing a EGD. Surgeon: Lenin Hernandez Procedure Notes SCOAP/Timeout: Performed Procedure in detail: Patient placed in left lateral decubitus position. Time out was performed. Procedural sedation was administered with Versed and Fentanyl. A bite block was placed. the scope was inserted into the mouth and advanced through the esophagus and into the stomach. The pylorus was intubated and the duodenum was normal. The scope was retroflexed within the stomach and there was a hiatal hernia. There was gastritis of the gastric antrum and multiple biopsies of the gastritis were taken. There were no active ulcerations. The scope was withdrawn into the esophagus the Z line was seen at 30 cm from the incisions. There was no mejía's esophagitis or masses or strictures. Stomach was desufflated and scope removed. Patient tolerated procedure well. Patient placed in left lateral decubitus position. Time out was performed. Procedural sedation was administered with Versed and Fentanyl. A rectal exam demonstrated no external hemorrhoids no internal masses. Colonoscopy scope was placed into the rectum and advanced through the colon to the cecum. The ileocecal valve was identified. The scope was then slowly withdrawn examining colon thoroughly in all directions. The colonoscopy was notable for the following 1. Grade 1 internal hemorrhoids 2. Diverticulosis of sigmoid colon 3. Quality of prep Excellent 4. No rectal or colonic masses. Scope withdrawal time: 11 Sedation minutes: 27 Findings: diverticulosis, gastritis, hiatal hernia and internal hemorrhoids Specimen(s): other (Gastric biopsy) Complications: none Impression: Gastritis. Diverticulosis. Post-procedure Recommendations: Colonscopy in 10 years, Start medication(s) (Omeprazole) and Will call with biopsy results Disposition: same day surgery
[2019-11-29] MEDS: MIDAZOLAM 5 MG/5 ML VIAL IV (15:23)
[2019-11-29 15:24] VITALS: BP 126/77; PULSE 72; RESP 13; TEMP 36.6; O2SAT 97
[2019-11-29] MEDS: fentaNYL 250 MCG/5 ML INJ IV (15:24)
[2019-11-29] MEDS: LIDOCAINE VISCOUS 2% 15 ML SOLUTION PO (15:25)
[2019-11-29 15:29] VITALS: BP 121/69; PULSE 69; RESP 13; O2SAT 98
[2019-11-29 15:33] VITALS: BP 118/70; PULSE 71; RESP 13; O2SAT 98
[2019-11-29 15:43] VITALS: BP 118/73; PULSE 73; RESP 16; TEMP 36.5; O2SAT 98
[2019-11-29 16:34] VITALS: BP 131/85; PULSE 63; RESP 16; TEMP 36.8; O2SAT 100
== END 2019-11-29 16:34 | disposition home or self-care (01) ==
PROVIDERS: PCP Family Medicine; Visit Provider Surgery
PROC: 0DJD8ZZ Inspection of Lower Intestinal Tract, Via Natural or Artificial Opening Endoscopic (ICD-10-PCS; CPT 45378; 2019-11-29 14:30)
PROC: 0DJ08ZZ Inspection of Upper Intestinal Tract, Via Natural or Artificial Opening Endoscopic (ICD-10-PCS; CPT 43235; 2019-11-29 14:30)
DX: Z12.11 Encounter for screening for malignant neoplasm of colon (principal); R10.13 Epigastric pain; I10 Essential (primary) hypertension; F32.9 Major depressive disorder, single episode, unspecified; K44.9 Diaphragmatic hernia without obstruction or gangrene; K29.70 Gastritis, unspecified, without bleeding; K57.30 Diverticulosis of large intestine without perforation or abscess without bleeding; K64.0 First degree hemorrhoids
CPT/HCPCS: 43239; G0121; 99152; 99153; J2250; J3010

== ENCOUNTER → 2020-01-08 11:55 | Outpatient (CLI) | payer MEDICARE, OTHER, SELFPAY ==
--- NOTE | 2020-01-08 | DI.MG.S_ITS ---
UNILATERAL LEFT DIGITAL SCREENING MAMMOGRAM 3D/2D WITH CAD POST MASTECTOMY: 01/08/2020 CLINICAL: Routine screening. Personal history of right breast cancer. Family history of breast cancer. Comparison is made to exams dated: 11/30/2018 mammogram, 11/01/2017 mammogram, and 10/07/2016 mammogram - [facility]. There are scattered fibroglandular elements in left breast. Current study was also evaluated with a Computer Aided Detection (CAD) system. There are benign calcifications in the left breast. No significant masses, calcifications, or other findings are seen in the breast. There has been no significant interval change. IMPRESSION: There is no mammographic evidence of malignancy. A 1 year screening mammogram is recommended. This exam was interpreted at Station ID: [id number]. NOTE: For mammograms, a report in lay terms will be sent to the patient. Approximately 15% of breast malignancies will not be visualized mammographically. In the management of a palpable breast mass, a negative mammogram must not discourage biopsy of a clinically suspicious lesion. Electronically Signed By: Erick han/soila:01/09/2020 18:48:32 letter sent: Normal Exam ACR BI-RADS Category 2: Benign Finding(s) 3342F
== END ==
PROVIDERS: PCP Family Medicine; Referring Provider Family Medicine; Visit Provider Family Medicine
DX: Z12.31 Encounter for screening mammogram for malignant neoplasm of breast (principal); Z85.3 Personal history of malignant neoplasm of breast; Z80.3 Family history of malignant neoplasm of breast
CPT/HCPCS: 77063; 77067

== ENCOUNTER 2020-06-09 13:31 | Emergency (ER) | payer MEDICARE, OTHER, SELFPAY ==
[2020-06-09 13:41] VITALS: BP 143/72; PULSE 80; RESP 18; TEMP 37; O2SAT 99; BMI 24.0
--- NOTE | 2020-06-09 14:01 | ED_ITS ---
HPI - Epistaxis <DEBORA PhilipP - Last Filed: 06/09/20 14:50> General Chief complaint: Nasal Problem Stated complaint: nosebleed Time Seen by Provider: 06/09/20 13:36 Source: patient Mode of arrival: Ambulatory Limitations: no limitations History of Present Illness HPI Narrative: This is a 79-year-old female, nonsmoker, presents to ED with chief complain of bilateral, worse in right side, nose bleed which started at around noon. Patient reports takes baby aspirin daily for cardiac preventive purpose which was recommended by her primary care physician and she has an appointment with Dr. Pan this week Tuesday. Patient denies trauma, physical irritation to her nose prior epistaxis. Patient denies chest pain, breathing difficulty, or dizziness. Patient reports she felt some postnasal drips from nasal bleeding. She denies nausea or vomiting. Related Data Home Medications Medication Instructions Recorded Confirmed calcium carbonate 500 mg PO DAILY #0 03/28/12 11/29/19 cholecalciferol (vitamin D3) 2,000 unit PO DAILY #0 03/28/12 11/29/19 [Vitamin D3] aspirin 81 mg tablet,delayed 81 mg PO DAILY 04/24/19 11/29/19 release levothyroxine 50 mcg PO DAILY 08/02/19 11/29/19 Previous Rx's Medication Instructions Recorded losartan 50 mg tablet 50 mg PO DAILY #90 tab 06/11/19 sertraline 50 mg tablet 50 mg PO DAILY #90 tab 06/11/19 omeprazole 20 mg PO DAILY #60 cap 11/29/19 Allergies Allergy/AdvReac Type Severity Reaction Status Date / Time No Known Drug Allergies Allergy Verified 11/29/19 13:26 Review of Systems <AMADOR Philip - Last Filed: 06/09/20 14:50> Review of Systems Narrative: General: Denies fever, chills, fatigue, malaise, sweats. HEENT: See HPI Respiratory: Denies dyspnea, cough, wheezing, hemoptysis, sputum. Cardiovascular: Denies chest pain, palpitations, orthopnea, edema. Gastrointestinal: Denies nausea, vomiting, abdominal pain, diarrhea, constipation, melena. : Denies dysuria, frequency, incontinence, hematuria, urinary retention. Neurologic: Denies weakness, headache, numbness, change in speech, confusion, seizures, incoordination. Psychiatric: No concerning psychosocial issues. Patient History <AMADOR Philip - Last Filed: 06/09/20 14:50> Medical History Breast cancer (Chronic ~1987) Chicken pox (Resolved) Depression (Chronic ~2000) Hypertension (Chronic ~2009) Hypothyroidism (Chronic ~1998) Measles (Resolved) Osteoarthritis (Chronic ~2005) Osteopenia (Chronic) Osteoporosis (Chronic ~2010) Psoriasis (Chronic ~1979) Surgical History (Updated 05/26/18 @ 08:29 by Lynnette Hua) Anesthesia (Resolved) History of breast augmentation Status post partial mastectomy (~1987) Status post thoracotomy (~1995) Status post tubal ligation (~1978) Status post wrist surgery (Resolved) Family History (Updated 05/26/18 @ 08:33 by Lynnette Hua) Father Hypertension Cerebral hemorrhage Mother Alzheimers disease Grandfather Diabetes mellitus Grandmother Stroke Sister Age: 69 Breast cancer Grandfather TB (tuberculosis) Social History household members: none Smoking Status: Never smoker alcohol intake: current substance use type: does not use Smoking Status: Never smoker Substance Use Type: does not use Exam <AMADOR Philip - Last Filed: 06/09/20 14:50> Narrative Exam Narrative: General appearance: well developed, well nourished, in no acute distress. Head: normocephalic, atraumatic, no scalp lesions, non-tender. ENT: Hearing grossly intact. Nose without severe active bleeding. Seen large clots posterior right nares. Unable to locate source of bleeding from bilateral nares. Turbinate without swelling. Facial sinuses nontender to palpate. Mucous membrane moist, no mucosal lesion. Throat without erythema, tonsillar hypertrophy or exudate. Uvula in midline, airway patent. Neck/Thyroid: neck supple, full range of motion, no visible masses or meningeal signs. No JVD, non-tender without lymphadenopathy. Skin: no suspicious rashes, lesions over visible areas. Warm and dry and appropriate color for ethnicity. Heart: no clubbing, no cyanosis, no edema. Lungs: Breathing even and unlabored. No stridor. No accessory muscles used. Able to speak in full sentences. Chest: normal shape and expansion. Abdomen: non-obese, non-distended. Neurologic: alert and oriented. Cognitive exam, CORRECTIVE THERAPIST and PNS grossly intact on informal exam. Psych: good eye contact, normal affect. Initial Vital Signs Initial Vital Signs: Vital Signs Temperature 98.6 F 06/09/20 13:41 Pulse Rate 80 06/09/20 13:41 Respiratory Rate 18 06/09/20 13:41 Blood Pressure 143/72 H 06/09/20 13:41 Pulse Oximetry 99 06/09/20 13:41 <Jimmie Minaya MD - Last Filed: 06/09/20 19:05> Initial Vital Signs Initial Vital Signs: Vital Signs Temperature 98.6 F 06/09/20 13:41 Pulse Rate 80 06/09/20 13:41 Respiratory Rate 18 06/09/20 13:41 Blood Pressure 143/72 H 06/09/20 13:41 Pulse Oximetry 99 06/09/20 13:41 Procedures <AMADOR Philip - Last Filed: 06/09/20 14:50> Epistaxis Control Nostril: bilateral Nose Prepped With: oxymetazoline Direct Inspection: unable to visualize Clots Removed by: blowing nose Cautery Used: none (Direct pressure with the nasal clips for 30 minutes) Patient Tolerated Procedure: well Scores <AMADOR Philip - Last Filed: 06/09/20 14:50> GCS [place] coma scale eye opening: Spontaneous Lei coma scale verbal response: Orientated Lei coma scale motor response: Obey commands [place] coma scale total score: 15 Course <AMADOR Philip - Last Filed: 06/09/20 14:50> Orders Ordered: Discontinued Medications Oxymetazoline HCl (Afrin) 2 sprays NASAL NOW ONE Stop: 06/09/20 13:37 Vital Signs Vital signs: Vital Signs - 8 hr 06/09/20 13:41 06/09/20 14:18 Temperature 98.6 F Pulse Rate 80 77 Respiratory Rate 18 16 Blood Pressure 143/72 H 123/66 Pulse Oximetry 99 98 <Jimmie Minaya MD - Last Filed: 06/09/20 19:05> Orders Ordered: Discontinued Medications Oxymetazoline HCl (Afrin) 2 sprays NASAL NOW ONE Stop: 06/09/20 13:37 Vital Signs Vital signs: Vital Signs - 8 hr 06/09/20 13:41 06/09/20 14:18 Temperature 98.6 F Pulse Rate 80 77 Respiratory Rate 18 16 Blood Pressure 143/72 H 123/66 Pulse Oximetry 99 98 [facility] - Epistaxis <Juan Ramon AMADOR Minaya - Last Filed: 06/09/20 14:50> Differential Diagnosis Differential diagnosis: Likely anterior epistaxis and posterior epistaxis Medical Records Attestation: I reviewed the patient's medical records. 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 Reports aspirin is taken for cardio protective reason. Patient did not have symptoms for hypertension or anemia. Initially unable to visualize source of bleeding. Used Afrin after large clots removed and direct pressure applied for 30 minutes. No further bleeding noted after this. Noticed left medial back septum with slight erythema without active bleeding. Patient advised to discuss with Dr. Pan about aspirin use if patient develops frequent nose bleeds. Discussed return precautions and Patient verbalized understanding and in agreement. Discharge Plan Departure Patient Disposition: Home Clinical Impression: Epistaxis Discharge Date/Time: 06/09/20 14:54 Instructions: DI for Nosebleed Activity Restrictions/Additional Instructions: You have been diagnosed with [bilateral epistaxis which was controlled with Afrin and direct pressure]. What to do: *Take your medications as directed. *Follow up with your primary care provider in 2-3 days, call for an appointment. Let them know you were seen in the ED and that we asked you to be seen in follow up. *Return to ED if you have any new, worsening, or concerning symptoms, such as [recurring bleeding not controlled at home using Afrin and direct pressure, chest pain, breathing difficulty, unable to tolerate, fever or any acute concerns]. Prescriptions: No Action losartan [Cozaar] 50 mg tablet 50 mg PO DAILY Qty: 90 RF: 3 sertraline [Zoloft] 50 mg tablet 50 mg PO DAILY Qty: 90 RF: 3 cholecalciferol (vitamin D3) [Vitamin D3] 2,000 unit Capsule 2,000 unit PO DAILY Qty: 0 RF: 0 calcium carbonate 500 mg calcium (1,250 mg) Tablet 500 mg PO DAILY Qty: 0 RF: 0 aspirin [Adult Low Dose Aspirin] 81 mg tablet,delayed release (DR/EC) 81 mg PO DAILY RF: 0 levothyroxine 50 mcg tablet 50 mcg PO DAILY RF: 0 omeprazole 20 mg capsule,delayed release(DR/EC) 20 mg PO DAILY Qty: 60 RF: 0 Referrals: Waqas Pan MD [Primary Care Provider] -
[2020-06-09 14:18] VITALS: BP 123/66; PULSE 77; RESP 16; O2SAT 98
== END 2020-06-09 14:54 | disposition home or self-care (01) ==
PROVIDERS: Emergency Provider Nurse Practitioner Family; PCP Family Medicine
DX: R04.0 Epistaxis (principal); Z79.82 Long term (current) use of aspirin
CPT/HCPCS: 30903; 99281; 99283

== ENCOUNTER → 2020-07-25 09:39 | Outpatient (CLI) | payer MEDICARE, OTHER, SELFPAY ==
[2020-07-25 11:34] LABS: Hematocrit 38.7 % (36-46); Hemoglobin 13.1 g/dL (12.0-16.0); Mean Corpuscular HGB Conc 33.9 % (30-36); Mean Corpuscular Hemoglobin 31.6 PG (26-34); Mean Corpuscular Volume 93.3 fL (80-100); Platelet Count 275 X10^3/uL (150-400); Red Blood Cell Count 4.15 X10^6/uL (4.0-5.2); Red Cell Distribution Width 12.5 % (11.6-14.8); White Blood Cell Count 6.3 X10^3/uL (4.5-11.0)
[2020-07-25 11:47] LABS: RBC Morphology Normal Morphology
[2020-07-25 12:02] LABS: Alanine Aminotransferase 12 IU/L (<35); Albumin 4.5 g/dL (3.5-5.0); Albumin Globulin Ratio 1.4 (1.0-2.8); Alkaline Phosphatase 87 U/L (38-126); Aspartate Aminotransferase 23 IU/L (14-36); BUN Creatinine Ratio 23.2 (6-22); Bilirubin Total 0.9 mg/dL (0.2-1.3); Blood Urea Nitrogen 19 mg/dL (7-17); Calcium 9.8 mg/dL (8.4-10.2); Carbon Dioxide 29 mmol/L (22-32); Chloride 101 mmol/L (98-107); Cholesterol 245 mg/dL (140-199); Estimated Glomerular Filt Rate > 60.0 mL/min (>60); Globulin 3.3 g/dL (1.7-4.1); Glucose 86 mg/dL (80-110); HDL Cholesterol 85 mg/dL (40-60); HEMOLYSIS < 15 (0-50); LDL Cholesterol Calculated 130 mg/dL (<100); Sodium 136 mmol/L (137-145); Total Protein 7.8 g/dL (6.3-8.2); Triglycerides 149 mg/dL (35-150)
[2020-07-25 12:04] LABS: Potassium 5.5 mmol/L (3.4-5.1)
[2020-07-25 12:14] LABS: Neutrophils Absolute Manual 4284 /uL (3000-5900); Total Cells Counted 100
[2020-07-25 12:26] LABS: TSH w/ Reflex to FT4 3.36 uIU/mL (0.47-4.68)
== END ==
PROVIDERS: PCP Family Medicine; Referring Provider Family Medicine; Visit Provider Family Medicine
DX: E03.9 Hypothyroidism, unspecified (principal); E78.5 Hyperlipidemia, unspecified; F32.9 Major depressive disorder, single episode, unspecified; I10 Essential (primary) hypertension
CPT/HCPCS: 36415; 80053; 80061; 84443; 85025

== ENCOUNTER → 2020-08-07 09:51 | Outpatient (CLI) | payer MEDICARE, OTHER, SELFPAY ==
[2020-08-07 10:33] LABS: BUN Creatinine Ratio 22.9 (6-22); Blood Urea Nitrogen 19 mg/dL (7-17); Calcium 9.7 mg/dL (8.4-10.2); Carbon Dioxide 30 mmol/L (22-32); Chloride 101 mmol/L (98-107); Estimated Glomerular Filt Rate > 60.0 mL/min (>60); Glucose 95 mg/dL (80-110); HEMOLYSIS < 15 (0-50); Sodium 138 mmol/L (137-145)
[2020-08-07 10:37] LABS: Potassium 5.4 mmol/L (3.4-5.1)
== END ==
PROVIDERS: PCP Family Medicine; Referring Provider Family Medicine; Visit Provider Family Medicine
DX: E87.5 Hyperkalemia (principal)
CPT/HCPCS: 36415; 80048

== ENCOUNTER → 2020-10-04 08:28 | Outpatient (CLI) | payer MEDICARE, OTHER, SELFPAY ==
[2020-10-04 09:45] LABS: COVID19 -Nasal RAPID Negative (Negative)
== END ==
PROVIDERS: PCP Family Medicine; Visit Provider Physician Assistant
DX: Z11.59 Encounter for screening for other viral diseases (principal)
CPT/HCPCS: 87635

== ENCOUNTER → 2020-12-16 12:23 | Outpatient (CLI) | payer MEDICARE, OTHER, SELFPAY ==
[2020-12-16] MEDS: COVID-19 VACC #1, MRNA(MOD) 100 MCG/0.5 ML VIAL IM (12:27)
== END ==
PROVIDERS: PCP Family Medicine; Visit Provider Internal Medicine
DX: Z23 Encounter for immunization (principal)
CPT/HCPCS: 0011A; 91301

== ENCOUNTER → 2021-01-13 12:30 | Outpatient (CLI) | payer MEDICARE, OTHER, SELFPAY ==
[2021-01-13] MEDS: COVID-19 VACC #2, MRNA(MOD) 100 MCG/0.5 ML VIAL IM (12:43)
== END ==
PROVIDERS: PCP Family Medicine; Visit Provider Internal Medicine
DX: Z23 Encounter for immunization (principal)
CPT/HCPCS: 0012A; 91301

== ENCOUNTER → 2021-03-23 15:54 | Outpatient (CLI) | payer MEDICARE, OTHER, SELFPAY ==
--- NOTE | 2021-03-23 | DI.MG.S_ITS ---
UNILATERAL LEFT DIGITAL SCREENING MAMMOGRAM 3D/2D WITH CAD POST MASTECTOMY: 03/23/2021 CLINICAL: Routine screening. Family history of breast cancer. Breast cancer. Comparison is made to exams dated: 01/08/2020 mammogram, 11/30/2018 mammogram, and 11/01/2017 mammogram - [facility]. There are scattered fibroglandular elements in left breast. Current study was also evaluated with a Computer Aided Detection (CAD) system. There are benign calcifications in the left breast. No significant masses, calcifications, or other findings are seen in the breast. There has been no significant interval change. IMPRESSION: BENIGN There is no mammographic evidence of malignancy. A 1 year screening mammogram is recommended. This exam was interpreted at Station ID: [id number]. NOTE: For mammograms, a report in lay terms will be sent to the patient. Approximately 15% of breast malignancies will not be visualized mammographically. In the management of a palpable breast mass, a negative mammogram must not discourage biopsy of a clinically suspicious lesion. Electronically Signed By: Waqas Camilo M.D., jr/soila:03/23/2021 16:45:52 letter sent: Normal Exam ACR BI-RADS Category 2: Benign Finding(s) 3342F
== END ==
PROVIDERS: PCP Family Medicine; Referring Provider Family Medicine; Visit Provider Family Medicine
DX: Z12.31 Encounter for screening mammogram for malignant neoplasm of breast (principal); Z85.3 Personal history of malignant neoplasm of breast; Z80.3 Family history of malignant neoplasm of breast
CPT/HCPCS: 77063; 77067

== ENCOUNTER 2021-05-21 08:35 | Emergency (ER) | payer MEDICARE, OTHER, SELFPAY ==
[2021-05-21 09:10] VITALS: BP 137/87; PULSE 74; RESP 16; TEMP 36.4; O2SAT 98; BMI 24.5
--- NOTE | 2021-05-21 09:13 | DI.RAD.S_ITS ---
PROCEDURE: XR KNEE LT 3V INDICATIONS: Left knee injury, GLF TECHNIQUE: 3 views of the knee were acquired. COMPARISON: [facility], , KNEE 3V RIGHT, 06/26/2013, 15:28. FINDINGS: Bones: No fractures or dislocations. No suspicious bony lesions. Mild tricompartmental periarticular osteophyte formation. Soft tissues: Moderate knee joint effusion. No suspicious soft tissue calcifications. Multiple intra-articular loose bodies. IMPRESSION: 1. Osteoarthritis with knee joint effusion intra-articular loose bodies. 2. No acute fracture. No osseous lesion. If symptoms and/or clinical suspicion for pathology persist, further assessment with repeat, or advanced imaging (e.g., CT, MRI, or bone scan) may be helpful for further assessment. Dictated by: Brenden Potter M.D. on 05/21/2021 at 9:39 Approved by: Brenden Potter M.D. on 05/21/2021 at 9:40
--- NOTE | 2021-05-21 10:56 | ED_ITS ---
HPI - Extremity Injury (Lower) General Chief Complaint: Extremity Injury, Lower Stated Complaint: tripped and fell yesterday, left knee pain Time Seen by Provider: 05/21/21 10:52 Source: patient Mode of arrival: Wheelchair Limitations: no limitations History of Present Illness HPI Narrative: 80-year-old female comes to the emergency department with complaint of ground level fall after tripping on a chair. Patient states she fell directly onto her left knee. She developed abrasion, she has had bruising and had pain with weight-bearing since then. She has pain over the patellar region and just adjacent. Patient is able to flex and extend her leg but walking is significantly uncomfortable. Patient does not take an aspirin daily she denies any other thinners. She denies any other injuries. Patient takes medication for hypertension and hypothyroidism. She has tried Advil [id number] with minimal improvement. She denies any allergies to medications. Related Data Home Medications Medication Instructions Recorded Confirmed calcium carbonate 500 mg calcium 500 mg PO DAILY #0 03/28/12 06/13/20 (1,250 mg) tablet cholecalciferol (vitamin D3) 50 2,000 unit PO DAILY #0 03/28/12 06/13/20 mcg (2,000 unit) capsule (Vitamin D3) aspirin 81 mg tablet,delayed 81 mg PO DAILY 04/24/19 06/13/20 release (Adult Low Dose Aspirin) Previous Rx's Medication Instructions Recorded escitalopram oxalate 10 mg tablet 10 mg PO DAILY #90 tab 06/13/20 (Lexapro) levothyroxine 50 mcg tablet 50 mcg PO DAILY #90 tab 07/25/20 losartan 50 mg tablet (Cozaar) 50 mg PO DAILY #90 tab 09/03/20 hydrocodone 5 mg-acetaminophen 325 1 tab PO QID PRN #10 tab 05/21/21 mg tablet Allergies Allergy/AdvReac Type Severity Reaction Status Date / Time No Known Drug Allergies Allergy Verified 05/21/21 09:10 Review of Systems Review of Systems ROS Unobtainable: All systems reviewed & are unremarkable except as noted in HPI and below Patient History Medical History Breast cancer (~1987) Chicken pox Depression (~2000) Hypertension (~2009) Hypothyroidism (~1998) Measles Osteoarthritis (~2005) Osteopenia Osteoporosis (~2010) Psoriasis (~1979) Surgical History Anesthesia History of breast augmentation Status post partial mastectomy (~1987) Status post thoracotomy (~1995) Status post tubal ligation (~1978) Status post wrist surgery Family History (Updated 05/26/18 @ 08:33 by Lynnette Hua) Father Hypertension Cerebral hemorrhage Mother Alzheimers disease Grandfather Diabetes mellitus Grandmother Stroke Sister Age: 70 Breast cancer Grandfather TB (tuberculosis) Social History household members: none Smoking Status: Never smoker alcohol intake: current substance use type: does not use Smoking Status: Never smoker alcohol intake frequency: a few times a month Substance Use Type: does not use Exam Narrative Exam Narrative: GENERAL: Alert and oriented x three, well-nourished female in mild distress. HEENT: Head normocephalic, atraumatic, EOMI, pupils reactive, face symmetric, moist mucous membranes NECK: Supple, full range of motion CARDIOVASCULAR: Regular rate and rhythm without murmurs, rubs or gallops. RESPIRATORY: Breath sounds equal bilaterally, no wheezes rales or rhonchi. EXTREMITIES: Normal range of motion, no clubbing or edema. Neurovascularly intact. Patient has erythema and abrasion over the knee as well as underlying ecchymosis with no palpable hematoma. Patient has mild to moderate tenderness over the patella and just at the inferior lateral location. Patient does not have any other bony tenderness of the thigh, tibia, fibula or lower extremity. She has full range of motion of her foot. Normal sensation throughout. Cap refill less than 2 seconds with positive pulse. Negative joint laxity testing. Patient does have increased pain with varus testing. NEUROLOGICAL: Cranial nerves II through XII grossly intact. Moving all extremities SKIN: Warm, dry, no petechiae, no rashes or lesions. Initial Vital Signs Initial Vital Signs: Vital Signs Temperature 97.5 F L 05/21/21 09:10 Pulse Rate 74 05/21/21 09:10 Respiratory Rate 16 05/21/21 09:10 Blood Pressure 137/87 05/21/21 09:10 Pulse Oximetry 98 05/21/21 09:10 Course Orders Ordered: ED Orders 05/21/21 09:13 XR knee LT 3V Stat Vital Signs Vital signs: Vital Signs - 8 hr 05/21/21 09:10 Temperature 97.5 F L Pulse Rate 74 Respiratory Rate 16 Blood Pressure 137/87 Pulse Oximetry 98 MDM - Extremity Injury (Lower) Imaging Data Extremity x-ray #1: Radiologist's Impression: [address] [id number] ReportSigned Patient: Irene Lopez MMR#: [id number]: 2Acct:[id number]/Sex: 80 / FDate of Service: 05/21/21Loc: EDAccession Number: [id number] Procedure: XR knee LT 3V Ordering Provider: Mindy Sherwood D.O. PROCEDURE: XR KNEE LT 3V INDICATIONS: Left knee injury, GLF TECHNIQUE: 3 views of the knee were acquired. COMPARISON: [facility], KNEE 3V RIGHT, 06/26/2013, 15:28. FINDINGS: Bones: No fractures or dislocations. No suspicious bony lesions. Mild tricompartmental periarticular osteophyte formation. Soft tissues: Moderate knee joint effusion. No suspicious soft tissue calcifications. Multiple intra-articular loose bodies. IMPRESSION: 1. Osteoarthritis with knee joint effusion intra-articular loose bodies. 2. No acute fracture. No osseous lesion. If symptoms and/or clinical suspicion for pathology persist, further assessment with repeat, or advanced imaging (e.g., CT, MRI, or bone scan) may be helpful for further assessment. Dictated by: Brenden Potter M.D. on 05/21/2021 at 9:39 Approved by: Brenden Potter M.D. on 05/21/2021 at 9:40 [facility] Narrative Medical decision making narrative: 80-year-old female with drip fall, left knee with abrasion, contusion and joint effusion but no obvious fracture. Dez wrap, conservative measures, walker or crutches depending on what is available to patient and follow-up outpatient. Discharge Plan Departure Patient Disposition: Home Clinical Impression: Joint effusion, Contusion of knee, Abrasion of knee Instructions: DI for Knee Sprain Activity Restrictions/Additional Instructions: Follow-up with your physician in the next week if you are not having improvement. If Tylenol or Advil are inadequate adequate for pain control You may take pain medication as prescribed. This medication can make you sleepy do not drive, perform hazardous activities or make any major decisions while taking it. This medication will make you constipated please take a stool softener once to twice daily until stools are soft and regular. You may weight bear as tolerated. Prescription to [facility] in [place]. Splint Care: Keep splint clean and dry. Elevated affected body part to decrease swelling. OK to use ice pack on the affected body part. Use for 15-20 minutes each time, for 5-6x per day. If you develop worsening pain, numbness, tingling, discoloration of the affected body part, loosen the DEZ wrap, and either see your doctor for an urgent re-assessment, or return to the Emergency Department. Return to the Emergency Department for any new or worsening symptoms. Prescriptions: New hydrocodone-acetaminophen 5-325 mg tablet 1 tab PO QID PRN (Reason: pain) Qty: 10 RF: 0 No Action escitalopram oxalate [Lexapro] 10 mg tablet 10 mg PO DAILY Qty: 90 RF: 3 cholecalciferol (vitamin D3) [Vitamin D3] 2,000 unit Capsule 2,000 unit PO DAILY Qty: 0 RF: 0 calcium carbonate 500 mg calcium (1,250 mg) Tablet 500 mg PO DAILY Qty: 0 RF: 0 levothyroxine 50 mcg tablet 50 mcg PO DAILY Qty: 90 RF: 2 losartan [Cozaar] 50 mg tablet 50 mg PO DAILY Qty: 90 RF: 3 aspirin [Adult Low Dose Aspirin] 81 mg tablet,delayed release (DR/EC) 81 mg PO DAILY RF: 0 Referrals: Waqas Pan MD [Primary Care Provider] - Stand Alone Forms: Against Medical Advice
--- NOTE | 2021-05-21 11:30 | PC.NURSE ---
Dez wrap applied to left knee. Walker dispensed.
== END 2021-05-21 11:31 | disposition home or self-care (01) ==
PROVIDERS: Emergency Provider Emergency Medicine; PCP Family Medicine
DX: M25.462 Effusion, left knee (principal); S80.02XA Contusion of left knee, initial encounter; S80.212A Abrasion, left knee, initial encounter; W18.30XA Fall on same level, unspecified, initial encounter
CPT/HCPCS: 73562; 99281; 99283

== ENCOUNTER → 2021-06-03 10:46 | Outpatient (CLI) | payer MEDICARE, OTHER, SELFPAY ==
--- NOTE | 2021-06-03 10:47 | DI.RAD.S_ITS ---
PROCEDURE: XR KNEE LT 3V INDICATIONS: GLF 2 weeks ago, repeat imaging TECHNIQUE: 3 views of the knee were acquired. COMPARISON: [facility], [place], XR KNEE LT 3V, 05/21/2021, 9:10. FINDINGS: Bones: There is a vertical lucency within the medial tibial plateau, more prominent when compared to prior exam. No tibial plateau depression. Tibial spine is intact. Lateral patellar subluxation is present. Soft tissues: Mild joint effusion. No suspicious soft tissue calcifications. IMPRESSION: Nondisplaced medial tibial plateau fracture. Dictated by: Brenda Dias M.D. on 06/03/2021 at 11:48 Approved by: Brenda Dias M.D. on 06/03/2021 at 11:50
== END ==
PROVIDERS: PCP Family Medicine; Referring Provider Family Medicine; Visit Provider Family Medicine
DX: S82.145A Nondisplaced bicondylar fracture of left tibia, initial encounter for closed fracture (principal); M25.562 Pain in left knee; W19.XXXA Unspecified fall, initial encounter
CPT/HCPCS: 73562

== ENCOUNTER → 2021-10-09 09:33 | Outpatient (CLI) | payer MEDICARE, OTHER, SELFPAY ==
[2021-10-09 11:09] LABS: Add Manual Diff / Slide Review NO; Basophils Absolute Auto 0 /uL (0-100); Basophils Percent Auto 0.6 % (0-2); Eosinophils Absolute Auto 100 /uL (0-450); Eosinophils Percent Auto 1.8 % (2-4); Hematocrit 38.1 % (36-46); Hemoglobin 12.9 g/dL (12.0-16.0); Lymphocytes Absolute Auto 1500 /uL (1100-4500); Lymphocytes Percent Auto 24.8 % (25-40); Mean Corpuscular HGB Conc 33.9 % (30-36); Mean Corpuscular Hemoglobin 31.9 PG (26-34); Mean Corpuscular Volume 94.4 fL (80-100); Monocytes Absolute Auto 500 /uL (0-900); Monocytes Percent Auto 8.9 % (3-14); Neutrophils Absolute Auto 4000 /uL (1500-7000); Neutrophils Percent Auto 63.9 % (50-75); Platelet Count 251 X10^3/uL (150-400); Red Blood Cell Count 4.04 X10^6/uL (4.0-5.2); Red Cell Distribution Width 13.1 % (11.6-14.8); White Blood Cell Count 6.2 X10^3/uL (4.5-11.0)
[2021-10-09 12:06] LABS: Alanine Aminotransferase 15 IU/L (<35); Albumin 4.5 g/dL (3.5-5.0); Albumin Globulin Ratio 1.5 (1.0-2.8); Alkaline Phosphatase 91 U/L (38-126); Aspartate Aminotransferase 27 IU/L (14-36); BUN Creatinine Ratio 25.6 (6-22); Bilirubin Total 0.7 mg/dL (0.2-1.3); Blood Urea Nitrogen 23 mg/dL (7-17); Calcium 9.8 mg/dL (8.4-10.2); Carbon Dioxide 27 mmol/L (22-32); Chloride 102 mmol/L (98-107); Cholesterol 242 mg/dL (140-199); Estimated Glomerular Filt Rate > 60.0 mL/min (>60); Globulin 3.1 g/dL (1.7-4.1); Glucose 90 mg/dL (80-110); HDL Cholesterol 85 mg/dL (40-60); HEMOLYSIS 16 (0-50); LDL Cholesterol Calculated 138 mg/dL (<100); Sodium 137 mmol/L (137-145); Total Protein 7.6 g/dL (6.3-8.2); Triglycerides 97 mg/dL (35-150)
[2021-10-09 12:07] LABS: Potassium 5.4 mmol/L (3.4-5.1)
[2021-10-09 12:53] LABS: Thyroid Stimulating Hormone 5.25 uIU/mL (0.47-4.68)
== END ==
PROVIDERS: PCP Family Medicine; Referring Provider Family Medicine; Visit Provider Family Medicine
DX: I10 Essential (primary) hypertension (principal); E03.9 Hypothyroidism, unspecified; E78.5 Hyperlipidemia, unspecified
CPT/HCPCS: 36415; 80053; 80061; 84443; 85025

== ENCOUNTER → 2022-05-04 08:05 | Outpatient (CLI) | payer MEDICARE, OTHER, SELFPAY | PROVIDERS: PCP Family Medicine; Referring Provider Family Medicine; Visit Provider Family Medicine | DX: Z53.20 Procedure and treatment not carried out because of patient's decision for unspecified reasons (principal) ==

== ENCOUNTER → 2022-08-19 09:20 | Outpatient (CLI) | payer MEDICARE, OTHER, SELFPAY ==
[2022-08-19 10:46] LABS: Add Manual Diff / Slide Review NO; Basophils Absolute Auto 100 /uL (0-100); Basophils Percent Auto 1.3 % (0-2); Eosinophils Absolute Auto 100 /uL (0-450); Eosinophils Percent Auto 1.8 % (2-4); Hematocrit 40.2 % (36-46); Hemoglobin 13.5 g/dL (12.0-16.0); Lymphocytes Absolute Auto 1400 /uL (1100-4500); Lymphocytes Percent Auto 19.3 % (25-40); Mean Corpuscular HGB Conc 33.6 % (30-36); Mean Corpuscular Hemoglobin 31.7 PG (26-34); Mean Corpuscular Volume 94.2 fL (80-100); Monocytes Absolute Auto 700 /uL (0-900); Monocytes Percent Auto 9.2 % (3-14); Neutrophils Absolute Auto 4900 /uL (1500-7000); Neutrophils Percent Auto 68.4 % (50-75); Platelet Count 287 X10^3/uL (150-400); Red Blood Cell Count 4.27 X10^6/uL (4.0-5.2); Red Cell Distribution Width 12.7 % (11.6-14.8); White Blood Cell Count 7.2 X10^3/uL (4.5-11.0)
[2022-08-19 11:02] LABS: Alanine Aminotransferase 21 IU/L (<35); Albumin 4.7 g/dL (3.5-5.0); Albumin Globulin Ratio 1.3 (1.0-2.8); Alkaline Phosphatase 96 U/L (38-126); Aspartate Aminotransferase 33 IU/L (14-36); Bilirubin Total 0.9 mg/dL (0.2-1.3); Blood Urea Nitrogen 17 mg/dL (7-17); Calcium 9.7 mg/dL (8.4-10.2); Carbon Dioxide 28 mmol/L (22-32); Chloride 102 mmol/L (98-107); Cholesterol 203 mg/dL (140-199); Estimated Glomerular Filt Rate > 60 mL/min (>60); Globulin 3.6 g/dL (1.7-4.1); Glucose 92 mg/dL (80-110); HDL Cholesterol 73 mg/dL (40-60); HEMOLYSIS < 15 (0-50); LDL Cholesterol Calculated 81 mg/dL (<100); Potassium 5.1 mmol/L (3.4-5.1); Sodium 138 mmol/L (137-145); Total Protein 8.3 g/dL (6.3-8.2); Triglycerides 247 mg/dL (35-150)
[2022-08-19 11:33] LABS: Thyroid Stimulating Hormone 3.19 uIU/mL (0.47-4.68)
== END ==
PROVIDERS: PCP Family Medicine; Referring Provider Family Medicine; Visit Provider Family Medicine
DX: E03.9 Hypothyroidism, unspecified (principal); E78.5 Hyperlipidemia, unspecified; F32.9 Major depressive disorder, single episode, unspecified; I10 Essential (primary) hypertension
CPT/HCPCS: 36415; 80053; 80061; 84443; 85025

== ENCOUNTER 2022-10-19 15:43 | Emergency (ER) | payer MEDICARE, OTHER, SELFPAY ==
[2022-10-19] VITALS (7 sets, daily range): BP systolic 157–187; BP diastolic 85–94; PULSE 78–97; RESP 14–21; TEMP 36.9; O2SAT 96–98; BMI 24.5
--- NOTE | 2022-10-19 15:54 | DI.RAD.S_ITS ---
PROCEDURE: XR CHEST 1V INDICATIONS: chest pain TECHNIQUE: One view of the chest was acquired. COMPARISON: [facility], [place], XR CHEST 1V, 08/02/2019, 9:06. FINDINGS: Surgical changes and devices: Partial pulmonary resection on the right. Lungs and pleura: Lungs are clear. Emphysematous change. No pleural effusions or pneumothorax. Mediastinum: Mediastinal contours appear normal. Heart size is normal. Bones and chest wall: No suspicious bony lesions. Overlying soft tissues appear unremarkable. IMPRESSION: No evidence acute pulmonary process. COPD. Dictated by: Alessandro Castillo M.D. on 10/19/2022 at 16:48 Approved by: Alessandro Castillo M.D. on 10/19/2022 at 16:50
--- NOTE | 2022-10-19 16:40 | ED_ITS ---
HPI - Arrhythmia/Palpitations General Chief Complaint: Arrhythmia/Palpitations Stated Complaint: rap. heart rate 1hr Time Seen by Provider: 10/19/22 16:26 Source: patient Mode of arrival: Ambulatory History of Present Illness HPI narrative: Patient is an 82-year-old female. History of hypertension. Is here for evaluation of approximately 1-1.5 hours of a fast heart rate. This has happened to her the past. Two separate episodes prior. She is never worn a Holter monitor. They have all been self-limiting and resolved on their own. Today she was sitting on the couch when the symptoms started. No chest pain. No shortness of breath. Somewhat lightheaded. She currently is asymptomatic. Not on blood thinners. Has taken all of her medications as directed Related Data Home Medications Medication Instructions Recorded Confirmed calcium carbonate 500 mg calcium 500 mg PO DAILY ##0 03/28/12 07/29/22 (1,250 mg) tablet cholecalciferol (vitamin D3) 50 2,000 unit PO DAILY ##0 03/28/12 07/29/22 mcg (2,000 unit) capsule (Vitamin D3) aspirin 81 mg tablet,delayed 81 mg PO DAILY 04/24/19 07/29/22 release (Adult Low Dose Aspirin) Previous Rx's Medication Instructions Recorded atorvastatin 10 mg tablet (Lipitor) 10 mg PO DAILY #90 tabs 07/29/22 escitalopram oxalate 10 mg tablet 10 mg PO DAILY #90 tabs 07/29/22 (Lexapro) levothyroxine 50 mcg tablet 50 mcg PO DAILY #90 tabs 07/29/22 losartan 50 mg tablet See Rx Instructions .Route 07/29/22 .COMPLEX #90 tabs Allergies Allergy/AdvReac Type Severity Reaction Status Date / Time No Known Drug Allergies Allergy Verified 10/26/21 09:31 Review of Systems Constitutional Constitutional: Reports system reviewed and no additional complaints, except as documented Cardiovascular Cardiovascular: Reports system reviewed and no additional complaints, except as documented Respiratory Respiratory: Reports system reviewed and no additional complaints, except as documented Musculoskeletal Musculoskeletal: Reports system reviewed and no additional complaints, except as documented Hematologic/Lymphatic On Anticoagulants: No Patient History Medical History Breast cancer (~1987) Chicken pox Depression (~2000) Hypertension (~2009) Hypothyroidism (~1998) Measles Osteoarthritis (~2005) Osteopenia Osteoporosis (~2010) Psoriasis (~1979) Screening for colon cancer Tibial plateau fracture, left Surgical History Anesthesia History of breast augmentation Status post partial mastectomy (~1987) Status post thoracotomy (~1995) Status post tubal ligation (~1978) Status post wrist surgery Family History (Updated 05/26/18 @ 08:33 by Lynnette Hua) Father Hypertension Cerebral hemorrhage Mother Alzheimers disease Grandfather Diabetes mellitus Grandmother Stroke Sister Age: 71 Breast cancer Grandfather TB (tuberculosis) Social History household members: none Smoking Status: Never smoker alcohol intake: current substance use type: does not use Smoking Status: Never smoker alcohol intake frequency: a few times a week Substance Use Type: does not use Exam Initial Vital Signs Initial Vital Signs: Vital Signs Temperature 98.4 F 10/19/22 15:49 Pulse Rate 95 H 10/19/22 15:49 Respiratory Rate 20 10/19/22 15:49 Blood Pressure 157/94 H 10/19/22 15:49 Pulse Oximetry 97 10/19/22 15:49 Oxygen Delivery Method 10/19/22 15:49 HENMT Head: normal to inspection and normocephalic Resp Effort & Inspection: normal respiratory effort Auscultation: clear to auscultation bilaterally Cardio Rate: regular rate Rhythm: regular rhythm GI Inspection: normal to inspection Skin General: no rashes or lesions noted Neuro General: patient alert, patient awake, patient oriented x3 and moves all extremities Speech: speech normal Extrem General: normal to inspection Course Orders Ordered: ED Orders 10/19/22 15:54 XR chest 1V Stat EKG-12 Lead Stat 10/19/22 16:15 COVID19 -Nasal RAPID/Pre-Proc Stat 10/19/22 16:40 Complete Blood Count AUTO DIFF Stat Comprehensive Metabolic Panel Stat Lipase Stat Magnesium Stat Partial Thromboplastin Time Stat Prothrombin Time INR Stat Troponin & CK Cardiac Panel Stat Vital Signs Vital signs: Vital Signs - 8 hr 10/19/22 15:49 10/19/22 16:22 10/19/22 16:25 Temperature 98.4 F Pulse Rate 95 H 78 88 Respiratory Rate 20 16 Blood Pressure 157/94 H Pulse Oximetry 97 97 98 Oxygen Delivery Method Room Air 10/19/22 16:25 10/19/22 16:30 10/19/22 16:30 Temperature Pulse Rate 97 H Respiratory Rate 14 Blood Pressure 168/85 H 165/86 H Pulse Oximetry 98 Oxygen Delivery Method 10/19/22 17:00 10/19/22 17:30 10/19/22 18:07 Temperature Pulse Rate 94 H 82 Respiratory Rate 15 21 Blood Pressure 187/87 H Pulse Oximetry 96 96 Oxygen Delivery Method MDM - Arrhythmia/Palpitations Lab Data Attestation: I reviewed the patient's lab results. Result diagrams: 10/19/22 16:40 10/19/22 16:40 Labs: Lab Results 10/19/22 10/19/22 10/19/22 Range/Units 16:15 16:40 16:40 WBC 8.9 (4.5-11.0) X10^3/uL RBC 4.13 (4.0-5.2) X10^6/uL Hgb 13.4 (12.0-16.0) g/dL Hct 38.7 (36-46) % MCV 93.6 (80-100) fL MCH 32.4 (26-34) PG MCHC 34.7 (30-36) % RDW 13.1 (11.6-14.8) % Plt Count 275 (150-400) X10^3/uL Neut % (Auto) 70.6 (50-75) % Lymph % (Auto) 16.9 L (25-40) % [place] % (Auto) 10.7 (3-14) % Eos % (Auto) 1.1 L (2-4) % Baso % (Auto) 0.7 (0-2) % Neut # (Auto) 6300 (6114-4704) /uL Lymph # (Auto) 1500 (2103-0322) /uL [place] # (Auto) 1000 H (0-900) /uL Eos # (Auto) 100 (0-450) /uL Baso # (Auto) 100 (0-100) /uL PT 10.9 (10.1-12.7) SECONDS INR 1.0 (0.9-1.3) APTT 32 (26-36) SECONDS Sodium (137-145) mmol/L Potassium (3.4-5.1) mmol/L Chloride (98-107) mmol/L Carbon Dioxide (22-32) mmol/L BUN (7-17) mg/dL Creatinine (0.52-1.04) mg/dL Estimated GFR (>60) mL/min BUN/Creatinine Ratio (6-22) Glucose (80-110) mg/dL Calcium (8.4-10.2) mg/dL Magnesium (1.6-2.3) mg/dL Total Bilirubin (0.2-1.3) mg/dL AST (14-36) IU/L ALT (<35) IU/L Alkaline Phosphatase (38-126) U/L Total Creatine Kinase (30-135) U/L CK-MB (CK-2) CK-MB (CK-2) Rel Index Troponin I (0.01-0.034) ng/mL Total Protein (6.3-8.2) g/dL Albumin (3.5-5.0) g/dL Globulin (1.7-4.1) g/dL Albumin/Globulin Ratio (1.0-2.8) Lipase (23-300) U/L SARS-CoV-2 (PCR) Negative (Negative) 10/19/22 Range/Units 16:40 WBC (4.5-11.0) X10^3/uL RBC (4.0-5.2) X10^6/uL Hgb (12.0-16.0) g/dL Hct (36-46) % MCV (80-100) fL MCH (26-34) PG MCHC (30-36) % RDW (11.6-14.8) % Plt Count (150-400) X10^3/uL Neut % (Auto) (50-75) % Lymph % (Auto) (25-40) % [place] % (Auto) (3-14) % Eos % (Auto) (2-4) % Baso % (Auto) (0-2) % Neut # (Auto) (8570-8753) /uL Lymph # (Auto) (6478-0973) /uL [place] # (Auto) (0-900) /uL Eos # (Auto) (0-450) /uL Baso # (Auto) (0-100) /uL PT (10.1-12.7) SECONDS INR (0.9-1.3) APTT (26-36) SECONDS Sodium 137 (137-145) mmol/L Potassium 4.3 (3.4-5.1) mmol/L Chloride 102 (98-107) mmol/L Carbon Dioxide 25 (22-32) mmol/L BUN 17 (7-17) mg/dL Creatinine 0.71 (0.52-1.04) mg/dL Estimated GFR > 60 (>60) mL/min BUN/Creatinine Ratio 23.9 H (6-22) Glucose 97 (80-110) mg/dL Calcium 9.3 (8.4-10.2) mg/dL Magnesium 1.9 (1.6-2.3) mg/dL Total Bilirubin 0.9 (0.2-1.3) mg/dL AST 21 (14-36) IU/L ALT 21 (<35) IU/L Alkaline Phosphatase 100 (38-126) U/L Total Creatine Kinase 39 (30-135) U/L CK-MB (CK-2) TNP CK-MB (CK-2) Rel Index TNP Troponin I < 0.012 (0.01-0.034) ng/mL Total Protein 7.5 (6.3-8.2) g/dL Albumin 4.4 (3.5-5.0) g/dL Globulin 3.1 (1.7-4.1) g/dL Albumin/Globulin Ratio 1.4 (1.0-2.8) Lipase 110 (23-300) U/L SARS-CoV-2 (PCR) (Negative) Imaging Data Chest x-ray: Radiologist's Impresson: [address] [id number] XRay Report Signed Patient: Irene Lopez MR#: [id number] : 1940 Acct:[id number] Age/Sex: 82 / F Date of Service: 10/19/22 Loc: ED Accession Number: [id number] ?? Procedure: XR chest 1V Ordering Provider: Shai Fierro D.O. PROCEDURE:? XR CHEST 1V ? INDICATIONS:? chest pain ? TECHNIQUE:? One view of the chest was acquired.? ? COMPARISON:? [facility], [place], XR CHEST 1V, 08/02/2019, 9:06. ? FINDINGS:? ? Surgical changes and devices:? Partial pulmonary resection on the right. ? Lungs and pleura:? Lungs are clear.? Emphysematous change.? No pleural effusions or pneumothorax.? ? Mediastinum:? Mediastinal contours appear normal.? Heart size is normal.? ? Bones and chest wall:? No suspicious bony lesions.? Overlying soft tissues appear unremarkable.? ? IMPRESSION:? No evidence acute pulmonary process.? COPD. ? ? Dictated by: Alessandro Castillo M.D. on 10/19/2022 at 16:48 ? ? Approved by: Alessandro Castillo M.D. on 10/19/2022 at 16:50? ECG Data Attestation: I personally reviewed and interpreted this ECG as follows: Interpretation: Sinus rhythm Ventricular rate 84 Premature atrial contractions Normal QRS QTC No ST T wave changes MDM Narrative Medical decision making narrative: Patient is asymptomatic here in the ER. She has no ectopy on the EKG. Her labs are unremarkable. The last episode of this happened approximately 6 months ago. We discussed the possibility of a Holter monitor that can be ordered by her primary doctor. We will hold on further workup for now. Patient was given return precautions and follow-up instructions. She expressed understanding and agreement. Discharge Plan Departure Patient Disposition: Home Clinical Impression: Palpitations Instructions: DI for Arrhythmias Activity Restrictions/Additional Instructions: Recommend that you continue to take all of your medications as directed. Contact your primary doctor for follow-up to discuss the indications for a Holter monitor. Return to the emergency department for any new or worsening symptoms. Prescriptions: No Action atorvastatin [Lipitor] 10 mg tablet 10 mg PO DAILY Qty: 90 3RF escitalopram oxalate [Lexapro] 10 mg tablet 10 mg PO DAILY Qty: 90 3RF levothyroxine 50 mcg tablet 50 mcg PO DAILY Qty: 90 2RF Rx Instructions: Due for lab work in October losartan 50 mg tablet See Rx Instructions .ROUTE .COMPLEX Qty: 90 3RF Dose Instruction: TAKE 1 TABLET BY MOUTH DAILY Rx Instructions: TAKE 1 TABLET BY MOUTH DAILY cholecalciferol (vitamin D3) [Vitamin D3] 2,000 unit Capsule 2,000 unit PO DAILY Qty: 0 calcium carbonate 500 mg calcium (1,250 mg) Tablet 500 mg PO DAILY Qty: 0 aspirin [Adult Low Dose Aspirin] 81 mg tablet,delayed release (DR/EC) 81 mg PO DAILY Referrals: Waqas Pan MD [Primary Care Provider] - Visit Report Forms: Patient Portal/API
[2022-10-19 16:48] LABS: COVID19 -Nasal RAPID Negative (Negative)
[2022-10-19 16:57] LABS: Add Manual Diff / Slide Review NO; Basophils Absolute Auto 100 /uL (0-100); Basophils Percent Auto 0.7 % (0-2); Eosinophils Absolute Auto 100 /uL (0-450); Eosinophils Percent Auto 1.1 % (2-4); Hematocrit 38.7 % (36-46); Hemoglobin 13.4 g/dL (12.0-16.0); Lymphocytes Absolute Auto 1500 /uL (1100-4500); Lymphocytes Percent Auto 16.9 % (25-40); Mean Corpuscular HGB Conc 34.7 % (30-36); Mean Corpuscular Hemoglobin 32.4 PG (26-34); Mean Corpuscular Volume 93.6 fL (80-100); Monocytes Absolute Auto 1000 /uL (0-900); Monocytes Percent Auto 10.7 % (3-14); Neutrophils Absolute Auto 6300 /uL (1500-7000); Neutrophils Percent Auto 70.6 % (50-75); Platelet Count 275 X10^3/uL (150-400); Prothrombin Time 10.9 SECONDS (10.1-12.7); Red Blood Cell Count 4.13 X10^6/uL (4.0-5.2); Red Cell Distribution Width 13.1 % (11.6-14.8); White Blood Cell Count 8.9 X10^3/uL (4.5-11.0)
[2022-10-19 17:00] LABS: PTT Partial Thromboplastin Tim 32 SECONDS (26-36)
[2022-10-19 17:02] LABS: Alanine Aminotransferase 21 IU/L (<35); Albumin 4.4 g/dL (3.5-5.0); Albumin Globulin Ratio 1.4 (1.0-2.8); Alkaline Phosphatase 100 U/L (38-126); Aspartate Aminotransferase 21 IU/L (14-36); BUN Creatinine Ratio 23.9 (6-22); Bilirubin Total 0.9 mg/dL (0.2-1.3); Blood Urea Nitrogen 17 mg/dL (7-17); Calcium 9.3 mg/dL (8.4-10.2); Carbon Dioxide 25 mmol/L (22-32); Chloride 102 mmol/L (98-107); Creatine Kinase 39 U/L (30-135); Estimated Glomerular Filt Rate > 60 mL/min (>60); Globulin 3.1 g/dL (1.7-4.1); Glucose 97 mg/dL (80-110); HEMOLYSIS < 15 (0-50); Lipase 110 U/L (23-300); Magnesium 1.9 mg/dL (1.6-2.3); Potassium 4.3 mmol/L (3.4-5.1); Sodium 137 mmol/L (137-145); Total Protein 7.5 g/dL (6.3-8.2)
[2022-10-19 17:14] LABS: Troponin I < 0.012 ng/mL (0.01-0.034)
== END 2022-10-19 18:09 | disposition home or self-care (01) ==
PROVIDERS: Emergency Provider Emergency Medicine; PCP Family Medicine
DX: R00.2 Palpitations (principal); R07.9 Chest pain, unspecified; Z79.82 Long term (current) use of aspirin; Z79.899 Other long term (current) drug therapy; Z20.822 Contact with and (suspected) exposure to COVID-19
CPT/HCPCS: 36415; 71045; 80053; 82550; 83690; 83735; 84484; 85025; 85610; 85730; 87635; 93005; 99283; 99284; C9803

== ENCOUNTER → 2022-10-27 13:40 | Outpatient (CLI) | payer MEDICARE, OTHER, SELFPAY ==
--- NOTE | 2022-11-16 07:56 | PM.CARDMON.1 ---
Aircraft Engine Technician Report Referral & Results Date Patient Seen: 10/27/22 Requesting provider: Waqas Pan Indication: Tachycardia Duration of monitoring (days): 6 Diary information: There was 1 patient triggered event and 1 patient diary entry Both of these patient events were variably associated with (within 45 seconds) sinus rhythm and PACs Data: Minimum heart rate identified was 49 beats per minute at 10:03 on 11/01/2022 Maximum sinus heart rate was 135 beats per minute at 18:09 on 10/29/2022 Maximum overall heart rate was 222 beats per minute at 14:10 on 10/27/2022 during a run of SVT Approximately 7.1% of identified beats were supraventricular ectopic in origin which would classify them as frequent Less than 1% of identified beats were ventricular ectopic in origin which would classify them as rare There were 127 runs of SVT with the fastest being an 8 minute 31 second run at a maximum heart rate of 222 beats per minute. The longest lasted 4 hours and 9 minutes There were no pauses of 3 seconds or longer or episodes of atrial fibrillation identified on this study Impression: 5+ day gambling monitor demonstrating rare runs of SVT sometimes with extended duration up to 4+ hours. Heart rate can be excessively high during these runs as well as above Patient also with frequent PACs Clinical correlation suggested
== END ==
PROVIDERS: PCP Family Medicine; Referring Provider Family Medicine; Visit Provider Family Medicine
DX: R00.0 Tachycardia, unspecified (principal); R00.2 Palpitations
CPT/HCPCS: 93242; 93244

== ENCOUNTER 2022-10-29 14:10 | Emergency (ER) | payer MEDICARE, OTHER, SELFPAY ==
[2022-10-29] VITALS (35 sets, daily range): BP systolic 105–158; BP diastolic 57–106; PULSE 67–185; RESP 14–25; TEMP 36.8; O2SAT 93–99; BMI 24.5
--- NOTE | 2022-10-29 14:22 | DI.RAD.S_ITS ---
PROCEDURE: XR CHEST 1V INDICATIONS: chest pain TECHNIQUE: One view of the chest was acquired. COMPARISON: [facility], CR, XR CHEST 1V, 10/19/2022, 16:18. FINDINGS: Surgical changes and devices: Left chest wall lead less pacer is seen. Postsurgical changes are noted in right midlung field extending to right infrahilar region. Lungs and pleura: Lungs are clear. No pleural effusions or pneumothorax. Mediastinum: Mediastinal contours appear normal. Heart size is normal. Bones and chest wall: No suspicious bony lesions. Overlying soft tissues appear unremarkable. IMPRESSION: No acute cardiopulmonary pathology. Dictated by: Pradip Roque M.D. on 10/29/2022 at 15:03 Approved by: Pradip Roque M.D. on 10/29/2022 at 15:04
[2022-10-29 14:36] LABS: Add Manual Diff / Slide Review NO; Basophils Absolute Auto 100 /uL (0-100); Basophils Percent Auto 0.6 % (0-2); Eosinophils Absolute Auto 200 /uL (0-450); Eosinophils Percent Auto 1.5 % (2-4); Hematocrit 42.3 % (36-46); Hemoglobin 14.3 g/dL (12.0-16.0); Lymphocytes Absolute Auto 2200 /uL (1100-4500); Lymphocytes Percent Auto 18.9 % (25-40); Mean Corpuscular HGB Conc 33.7 % (30-36); Mean Corpuscular Hemoglobin 31.5 PG (26-34); Mean Corpuscular Volume 93.5 fL (80-100); Monocytes Absolute Auto 1100 /uL (0-900); Monocytes Percent Auto 9.2 % (3-14); Neutrophils Absolute Auto 8200 /uL (1500-7000); Neutrophils Percent Auto 69.8 % (50-75); Platelet Count 341 X10^3/uL (150-400); Red Blood Cell Count 4.53 X10^6/uL (4.0-5.2); Red Cell Distribution Width 13.1 % (11.6-14.8); White Blood Cell Count 11.8 X10^3/uL (4.5-11.0)
--- NOTE | 2022-10-29 14:38 | ED_ITS ---
HPI - Arrhythmia/Palpitations General Chief Complaint: Arrhythmia/Palpitations Stated Complaint: pulse is elavated/liteheaded/week/ Time Seen by Provider: 10/29/22 14:18 Source: patient Mode of arrival: Ambulatory History of Present Illness HPI narrative: Patient is a 82-year-old female is here for evaluation of palpitations and lightheadedness. She states that the symptoms started today at approximately 1030 or 1100 hours this morning. They have been consistent since then. She does have a ZIO patch on. This is ordered by her primary doctor after her last visit here to the ER. She denies chest pain. No new medications. Related Data Home Medications Medication Instructions Recorded Confirmed calcium carbonate 500 mg calcium 500 mg PO DAILY ##0 03/28/12 07/29/22 (1,250 mg) tablet cholecalciferol (vitamin D3) 50 2,000 unit PO DAILY ##0 03/28/12 07/29/22 mcg (2,000 unit) capsule (Vitamin D3) aspirin 81 mg tablet,delayed 81 mg PO DAILY 04/24/19 07/29/22 release (Adult Low Dose Aspirin) Previous Rx's Medication Instructions Recorded atorvastatin 10 mg tablet (Lipitor) 10 mg PO DAILY #90 tabs 07/29/22 escitalopram oxalate 10 mg tablet 10 mg PO DAILY #90 tabs 07/29/22 (Lexapro) levothyroxine 50 mcg tablet 50 mcg PO DAILY #90 tabs 07/29/22 losartan 50 mg tablet See Rx Instructions .Route 07/29/22 .COMPLEX #90 tabs apixaban 5 mg tablet (Eliquis) 5 mg PO BID 28 days #56 tabs 10/29/22 metoprolol tartrate 25 mg tablet 12.5 mg PO BID #30 tabs 10/29/22 Allergies Allergy/AdvReac Type Severity Reaction Status Date / Time No Known Drug Allergies Allergy Verified 10/29/22 14:22 Review of Systems Constitutional Constitutional: Reports system reviewed and no additional complaints, except as documented Cardiovascular Cardiovascular: Reports system reviewed and no additional complaints, except as documented Respiratory Respiratory: Reports system reviewed and no additional complaints, except as documented Gastrointestinal Gastrointestinal: Reports system reviewed and no additional complaints, except as documented Musculoskeletal Musculoskeletal: Reports system reviewed and no additional complaints, except as documented Integumentary/Breasts Skin/Breast: Reports system reviewed and no additional complaints, except as documented Hematologic/Lymphatic On Anticoagulants: No Patient History Medical History Breast cancer (~1987) Chicken pox Depression (~2000) Hypertension (~2009) Hypothyroidism (~1998) Measles Osteoarthritis (~2005) Osteopenia Osteoporosis (~2010) Psoriasis (~1979) Screening for colon cancer Tibial plateau fracture, left Surgical History Anesthesia History of breast augmentation Status post partial mastectomy (~1987) Status post thoracotomy (~1995) Status post tubal ligation (~1978) Status post wrist surgery Family History (Updated 05/26/18 @ 08:33 by Lynnette Hua) Father Hypertension Cerebral hemorrhage Mother Alzheimers disease Grandfather Diabetes mellitus Grandmother Stroke Sister Age: 71 Breast cancer Grandfather TB (tuberculosis) Social History household members: none Smoking Status: Never smoker alcohol intake: current substance use type: does not use Smoking Status: Never smoker alcohol intake frequency: a few times a week Substance Use Type: does not use Exam Initial Vital Signs Initial Vital Signs: Vital Signs Temperature 98.2 F 10/29/22 14:18 Pulse Rate 185 H 10/29/22 14:18 Respiratory Rate 19 10/29/22 14:18 Blood Pressure 123/74 10/29/22 14:18 Pulse Oximetry 98 10/29/22 14:18 Oxygen Delivery Method 10/29/22 14:18 HENMT Head: normal to inspection and normocephalic Resp Effort & Inspection: normal respiratory effort Auscultation: clear to auscultation bilaterally Cardio Rate: tachycardic Rhythm: regular rhythm GI Inspection: normal to inspection Skin General: no rashes or lesions noted Neuro General: patient alert, patient awake and moves all extremities Extrem General: normal to inspection and capillary refill normal Psych Appearance: grossly normal and well kempt Procedures Cardioversion Consent Signed: Yes Indication: Atrial flutter Stability: Stable Number of attempts (shocks): 2 Joules used: 120 and 150 Cardiac rhythm post-cardioversion: Sinus rhythm with PACs Procedural Sedation Consent signed: Yes Time out performed: Yes Indication: cardioversion ASA Class: I Mallampati Airway Classification: Class II Preparation: monitor technician applied, pulse oximeter, capnometry used, sup plemental O2 applied, suction/airway equipment at bedside and IV secured Fentanyl: IV Fentanyl dose (mcg): 12 IV Propofol dose (mg): 50 Intraservice time/total sedation time (min): 15 ED Sedation Level: Moderate (Concious) Patient Tolerated Procedure: Well and No complications Course Orders Ordered: ED Orders 10/29/22 14:22 XR chest 1V Stat 10/29/22 14:25 Complete Blood Count AUTO DIFF Stat Comprehensive Metabolic Panel Stat Lipase Stat Magnesium Stat Partial Thromboplastin Time Stat Prothrombin Time INR Stat Troponin & CK Cardiac Panel Stat 10/29/22 14:27 EKG-12 Lead Stat 10/29/22 14:51 COVID19 -Nasal RAPID/Pre-Proc Stat 10/29/22 15:09 RT Consult Eval and Treat Now Sodium Chloride (Normal Saline 0.9%) 1,000 mls @ 125 mls/hr IV CONT ALBARO Last Admin: 10/29/22 15:18 Dose: 125 mls/hr Documented By: JOE Discontinued Medications Fentanyl (Fentanyl 100 Mcg/2 Ml Inj) 12.5 mcg IV NOW ONE Stop: 10/29/22 15:09 Last Admin: 10/29/22 15:57 Dose: 12.5 mcg Documented By: JOE Propofol (Propofol 200 Mg/20 Ml Vial) 100 mg IV NOW ONE Stop: 10/29/22 15:09 Last Admin: 10/29/22 15:19 Dose: 50 mg Documented By: JOE Vital Signs Vital signs: Vital Signs - 8 hr 10/29/22 14:18 10/29/22 15:30 10/29/22 15:35 Temperature 98.2 F Pulse Rate 185 H 87 80 Respiratory Rate 19 17 24 Blood Pressure 123/74 109/65 105/57 L Pulse Oximetry 98 93 96 Oxygen Delivery Method Room Air Oxygen Flow Rate 2 2 10/29/22 15:40 10/29/22 15:45 10/29/22 15:50 Temperature Pulse Rate 78 75 75 Respiratory Rate 14 19 18 Blood Pressure 115/74 139/76 133/80 Pulse Oximetry 97 96 98 Oxygen Delivery Method Oxygen Flow Rate 1 0 0 10/29/22 15:55 10/29/22 15:48 10/29/22 14:19 Temperature Pulse Rate 76 157 H 177 H Respiratory Rate 18 16 Blood Pressure 141/76 H Pulse Oximetry 98 98 Oxygen Delivery Method Oxygen Flow Rate 0 10/29/22 14:20 10/29/22 14:20 10/29/22 14:25 Temperature Pulse Rate 169 H 165 H Respiratory Rate 15 19 Blood Pressure 140/92 H Pulse Oximetry 98 97 Oxygen Delivery Method Oxygen Flow Rate 10/29/22 14:30 10/29/22 14:30 10/29/22 14:35 Temperature Pulse Rate 162 H 162 H Respiratory Rate 23 Blood Pressure 125/80 Pulse Oximetry 98 98 Oxygen Delivery Method Oxygen Flow Rate 10/29/22 14:40 10/29/22 14:45 10/29/22 14:45 Temperature Pulse Rate 163 H 155 H Respiratory Rate Blood Pressure 122/85 Pulse Oximetry 98 97 Oxygen Delivery Method Oxygen Flow Rate 10/29/22 14:50 10/29/22 14:55 10/29/22 15:00 Temperature Pulse Rate 152 H 154 H 153 H Respiratory Rate 16 Blood Pressure Pulse Oximetry 97 98 98 Oxygen Delivery Method Oxygen Flow Rate 10/29/22 15:01 10/29/22 15:01 10/29/22 15:05 Temperature Pulse Rate 153 H 152 H Respiratory Rate Blood Pressure 146/94 H Pulse Oximetry 98 98 Oxygen Delivery Method Oxygen Flow Rate 10/29/22 15:10 10/29/22 15:15 10/29/22 15:20 Temperature Pulse Rate 154 H 161 H 159 H Respiratory Rate Blood Pressure Pulse Oximetry 98 96 98 Oxygen Delivery Method Oxygen Flow Rate 10/29/22 15:22 10/29/22 15:22 10/29/22 15:25 Temperature Pulse Rate 157 H Respiratory Rate Blood Pressure 117/80 146/93 H Pulse Oximetry 98 Oxygen Delivery Method Oxygen Flow Rate 10/29/22 15:25 10/29/22 15:30 10/29/22 15:30 Temperature Pulse Rate 156 H 85 Respiratory Rate 17 Blood Pressure 109/65 Pulse Oximetry 98 95 Oxygen Delivery Method Oxygen Flow Rate 10/29/22 15:34 10/29/22 15:34 10/29/22 15:35 Temperature Pulse Rate 83 80 Respiratory Rate 17 Blood Pressure 105/57 L Pulse Oximetry 96 96 Oxygen Delivery Method Oxygen Flow Rate 10/29/22 15:36 10/29/22 15:36 10/29/22 15:40 Temperature Pulse Rate 84 Respiratory Rate Blood Pressure 127/63 115/74 Pulse Oximetry 94 Oxygen Delivery Method Oxygen Flow Rate 10/29/22 15:40 10/29/22 15:45 10/29/22 15:45 Temperature Pulse Rate 83 81 Respiratory Rate Blood Pressure 139/76 Pulse Oximetry 97 98 Oxygen Delivery Method Oxygen Flow Rate 10/29/22 15:50 10/29/22 15:50 10/29/22 15:55 Temperature Pulse Rate 75 Respiratory Rate 21 Blood Pressure 133/80 141/76 H Pulse Oximetry 97 Oxygen Delivery Method Oxygen Flow Rate 10/29/22 15:55 10/29/22 16:00 10/29/22 16:00 Temperature Pulse Rate 77 74 Respiratory Rate Blood Pressure 124/85 Pulse Oximetry 98 98 Oxygen Delivery Method Oxygen Flow Rate 10/29/22 16:05 10/29/22 16:05 Temperature Pulse Rate 70 Respiratory Rate Blood Pressure 147/97 H Pulse Oximetry 98 Oxygen Delivery Method Oxygen Flow Rate MDM - Arrhythmia/Palpitations Medical Records Attestation: I reviewed the patient's medical records. Lab Data Attestation: I reviewed the patient's lab results. Result diagrams: 10/29/22 14:25 10/29/22 14:25 Labs: Lab Results 10/29/22 10/29/22 10/29/22 Range/Units 14:25 14:25 14:25 WBC 11.8 H (4.5-11.0) X10^3/uL RBC 4.53 (4.0-5.2) X10^6/uL Hgb 14.3 (12.0-16.0) g/dL Hct 42.3 (36-46) % MCV 93.5 (80-100) fL MCH 31.5 (26-34) PG MCHC 33.7 (30-36) % RDW 13.1 (11.6-14.8) % Plt Count 341 (150-400) X10^3/uL Neut % (Auto) 69.8 (50-75) % Lymph % (Auto) 18.9 L (25-40) % Mcnairy % (Auto) 9.2 (3-14) % Eos % (Auto) 1.5 L (2-4) % Baso % (Auto) 0.6 (0-2) % Neut # (Auto) 8200 H (5746-0192) /uL Lymph # (Auto) 2200 (4821-7683) /uL Mcnairy # (Auto) 1100 H (0-900) /uL Eos # (Auto) 200 (0-450) /uL Baso # (Auto) 100 (0-100) /uL PT 11.2 (10.1-12.7) SECONDS INR 1.0 (0.9-1.3) APTT 30 (26-36) SECONDS Sodium 137 (137-145) mmol/L Potassium 4.5 (3.4-5.1) mmol/L Chloride 106 (98-107) mmol/L Carbon Dioxide 18 L (22-32) mmol/L BUN 16 (7-17) mg/dL Creatinine 0.77 (0.52-1.04) mg/dL Estimated GFR > 60 (>60) mL/min BUN/Creatinine Ratio 20.8 (6-22) Glucose 118 H (80-110) mg/dL Calcium 9.9 (8.4-10.2) mg/dL Magnesium 1.9 (1.6-2.3) mg/dL Total Bilirubin 0.8 (0.2-1.3) mg/dL AST 27 (14-36) IU/L ALT 22 (<35) IU/L Alkaline Phosphatase 120 (38-126) U/L Total Creatine Kinase 42 (30-135) U/L CK-MB (CK-2) TNP CK-MB (CK-2) Rel Index TNP Troponin I < 0.012 (0.01-0.034) ng/mL Total Protein 8.1 (6.3-8.2) g/dL Albumin 4.6 (3.5-5.0) g/dL Globulin 3.5 (1.7-4.1) g/dL Albumin/Globulin Ratio 1.3 (1.0-2.8) Lipase 137 (23-300) U/L SARS-CoV-2 (PCR) (Negative) 10/29/22 Range/Units 14:51 WBC (4.5-11.0) X10^3/uL RBC (4.0-5.2) X10^6/uL Hgb (12.0-16.0) g/dL Hct (36-46) % MCV (80-100) fL MCH (26-34) PG MCHC (30-36) % RDW (11.6-14.8) % Plt Count (150-400) X10^3/uL Neut % (Auto) (50-75) % Lymph % (Auto) (25-40) % Mcnairy % (Auto) (3-14) % Eos % (Auto) (2-4) % Baso % (Auto) (0-2) % Neut # (Auto) (6219-6002) /uL Lymph # (Auto) (6904-3658) /uL Mcnairy # (Auto) (0-900) /uL Eos # (Auto) (0-450) /uL Baso # (Auto) (0-100) /uL PT (10.1-12.7) SECONDS INR (0.9-1.3) APTT (26-36) SECONDS Sodium (137-145) mmol/L Potassium (3.4-5.1) mmol/L Chloride (98-107) mmol/L Carbon Dioxide (22-32) mmol/L BUN (7-17) mg/dL Creatinine (0.52-1.04) mg/dL Estimated GFR (>60) mL/min BUN/Creatinine Ratio (6-22) Glucose (80-110) mg/dL Calcium (8.4-10.2) mg/dL Magnesium (1.6-2.3) mg/dL Total Bilirubin (0.2-1.3) mg/dL AST (14-36) IU/L ALT (<35) IU/L Alkaline Phosphatase (38-126) U/L Total Creatine Kinase (30-135) U/L CK-MB (CK-2) CK-MB (CK-2) Rel Index Troponin I (0.01-0.034) ng/mL Total Protein (6.3-8.2) g/dL Albumin (3.5-5.0) g/dL Globulin (1.7-4.1) g/dL Albumin/Globulin Ratio (1.0-2.8) Lipase (23-300) U/L SARS-CoV-2 (PCR) Negative (Negative) Imaging Data Chest x-ray: Radiologist's Impresson: [address] [address] XRay Report Signed Patient: Irene Lopez MR#: [id number] : 1940 Acct:[id number] Age/Sex: 82 / F Date of Service: 10/29/22 Loc: ED Accession Number: [id number] ?? Procedure: XR chest 1V Ordering Provider: Shai Fierro D.O. PROCEDURE:? XR CHEST 1V ? INDICATIONS:? chest pain ? TECHNIQUE:? One view of the chest was acquired.? ? COMPARISON:? [facility], , XR CHEST 1V, 10/19/2022, 16:18. ? FINDINGS:? ? Surgical changes and devices:? Left chest wall lead less pacer is seen.? Postsurgical changes are noted in right midlung field extending to right infrahilar region. ? Lungs and pleura:? Lungs are clear.? No pleural effusions or pneumothorax.? ? Mediastinum:? Mediastinal contours appear normal.? Heart size is normal.? ? Bones and chest wall:? No suspicious bony lesions.? Overlying soft tissues appear unremarkable.? ? IMPRESSION:? No acute cardiopulmonary pathology. ? ? Dictated by: Pradip Roque M.D. on 10/29/2022 at 15:03 ? ? Approved by: Pradip Roque M.D. on 10/29/2022 at 15:04?? ECG Data Attestation: I personally reviewed and interpreted this ECG as follows: Interpretation: Sinus tachycardia Ventricular rate 166 Normal axis Normal QRS Nonspecific ST T wave changes Slowing down EKG with a rhythm strip shows findings consistent with atrial flutter MDM Narrative Medical decision making narrative: Post cardioversion EKG is sinus rhythm with a rate of 87 with frequent PACs. Initially patient had a tachycardic rhythm that was supraventricular however was very regular. Was slowing down the EKG did have findings that were more consistent with atrial flutter than atrial fibrillation. Her symptoms started this morning at approximately 1000 hours. She is not anticoagulated. We discussed rate control versus rhythm control in the risks and benefits of each. After the discussion she opted for sedation and cardioversion. We did cardiovert her with the 2nd shock. Patient tolerated the procedure well. States she does not remember nor feel the procedure. Plan abuse start her on Eliquis. She has a ZIO patch already in place. Will also start her on low-dose metoprolol. Will have her contact her primary doctor on Tuesday for follow-up. She has an echocardiogram scheduled for next Tuesday. She was given return precautions. She expressed understanding and agreement. Discharge Plan Departure Patient Disposition: Home Clinical Impression: Atrial flutter Instructions: DI for Cardioversion Activity Restrictions/Additional Instructions: Continue to take all of your medications as directed. Prescription for new medications were sent to [facility]. Please start taking them as directed. Contact your primary doctor for a follow-up. Return to the emergency department for any new or worsening symptoms. Prescriptions: New Eliquis 5 mg tablet 5 mg PO BID 28 Days Qty: 56 0RF metoprolol tartrate 25 mg tablet 12.5 mg PO BID Qty: 30 0RF No Action atorvastatin [Lipitor] 10 mg tablet 10 mg PO DAILY Qty: 90 3RF escitalopram oxalate [Lexapro] 10 mg tablet 10 mg PO DAILY Qty: 90 3RF levothyroxine 50 mcg tablet 50 mcg PO DAILY Qty: 90 2RF Rx Instructions: Due for lab work in October losartan 50 mg tablet See Rx Instructions .ROUTE .COMPLEX Qty: 90 3RF Dose Instruction: TAKE 1 TABLET BY MOUTH DAILY Rx Instructions: TAKE 1 TABLET BY MOUTH DAILY cholecalciferol (vitamin D3) [Vitamin D3] 2,000 unit Capsule 2,000 unit PO DAILY Qty: 0 calcium carbonate 500 mg calcium (1,250 mg) Tablet 500 mg PO DAILY Qty: 0 aspirin [Adult Low Dose Aspirin] 81 mg tablet,delayed release (DR/EC) 81 mg PO DAILY Referrals: Waqas Pan MD [Primary Care Provider] -
[2022-10-29 14:39] LABS: Prothrombin Time 11.2 SECONDS (10.1-12.7)
[2022-10-29 14:42] LABS: PTT Partial Thromboplastin Tim 30 SECONDS (26-36)
--- NOTE | 2022-10-29 15:05 | PC.NURSE ---
Pt reports some lightheadedness that came and went earlier today.
[2022-10-29] MEDS: SODIUM CHLORIDE 0.9% 1,000 ML 125 ML IV (15:18)
[2022-10-29 15:19] LABS: Alanine Aminotransferase 22 IU/L (<35); Albumin 4.6 g/dL (3.5-5.0); Albumin Globulin Ratio 1.3 (1.0-2.8); Alkaline Phosphatase 120 U/L (38-126); Aspartate Aminotransferase 27 IU/L (14-36); BUN Creatinine Ratio 20.8 (6-22); Bilirubin Total 0.8 mg/dL (0.2-1.3); Blood Urea Nitrogen 16 mg/dL (7-17); Calcium 9.9 mg/dL (8.4-10.2); Carbon Dioxide 18 mmol/L (22-32); Chloride 106 mmol/L (98-107); Creatine Kinase 42 U/L (30-135); Estimated Glomerular Filt Rate > 60 mL/min (>60); Globulin 3.5 g/dL (1.7-4.1); Glucose 118 mg/dL (80-110); HEMOLYSIS 15 (0-50); Lipase 137 U/L (23-300); Magnesium 1.9 mg/dL (1.6-2.3); Potassium 4.5 mmol/L (3.4-5.1); Sodium 137 mmol/L (137-145); Total Protein 8.1 g/dL (6.3-8.2)
[2022-10-29 15:19] LABS: COVID19 -Nasal RAPID Negative (Negative)
[2022-10-29] MEDS: propofoL 200 MG/20 ML VIAL 100 MG IV (15:19)
[2022-10-29 15:30] LABS: Troponin I < 0.012 ng/mL (0.01-0.034)
[2022-10-29] MEDS: fentaNYL 100 MCG/2 ML INJ 12.5 MCG IV (15:57)
== END 2022-10-29 16:45 | disposition home or self-care (01) ==
PROVIDERS: Emergency Provider Emergency Medicine; PCP Family Medicine
DX: I48.92 Unspecified atrial flutter (principal); Z20.822 Contact with and (suspected) exposure to COVID-19
CPT/HCPCS: 36415; 71045; 80053; 82550; 83690; 83735; 84484; 85025; 85610; 85730; 87635; 92960; 93005; 93010; 96374; 99152; 99284; 99285; C9803; J2704; J3010

== ENCOUNTER → 2022-11-05 13:56 | Outpatient (CLI) | payer MEDICARE, OTHER, SELFPAY ==
--- NOTE | 2022-11-05 13:57 | DI.ECHO.S_ITS ---
[place] [facility]---------+ [facility] +---------+ : : [address] : : : : [id number] : : : : Phone: [phone] Echocardiogram Report + + :Name: YOLIE MAE Study Date: 11/05/2022 Height: 61 in : :[facility] ReadingLocation: Weight: 130 lb : : Gender: Female BSA: 1.6 m2 : :: 1940 Age: 82 yrs BP: 148/87 mmHg: :Reason For Study: Tachycardia : :Ordering Physician: SCOOTER, : :BRANDI Performed By: Vikash Blevins : :Referring: BRANDI HELMS : + + Interpretation Summary The left ventricle is normal in size. The ejection fraction is estimated to be 55-60%. The right ventricle is normal in size and function. There is mild mitral regurgitation. The IVC is of normal diameter and collapses greater than 50% with a sniff. This suggests a low right atrial pressure of 3 mm Hg. Procedure: A two-dimensional transthoracic echocardiogram with color flow and Doppler was performed. The study quality was technically adequate. There is no prior echocardiogram noted for this patient. The patient was in normal sinus rhythm during the exam. The patient had occasional PACs during the exam. Left Ventricle: The left ventricle is normal in size. Proximal septal thickening is noted. There is no echo evidence for significant left ventricular outflow tract obstruction. There is no thrombus. Left ventricular systolic function is normal. The ejection fraction is estimated to be 55-60%. There are no focal wall motion abnormalities. Diastolic parameters suggest a relaxation abnormality of the left ventricle, consistent with probable normal filling pressures. Right Ventricle: The right ventricle is normal in size and function. Atria: The left atrium is mildly dilated. Right atrial size is normal. The interatrial septum grossly appears intact with no obvious evidence for an atrial septal defect. Mitral Valve: There is mild mitral annular calcification. There is mild mitral regurgitation. Aortic Valve: The aortic valve is normal in structure and function. The aortic valve is trileaflet. There is no aortic valve stenosis. There is trace aortic regurgitation. Tricuspid Valve: The tricuspid valve is normal in structure and function. Pulmonary artery pressures cannot be estimated because of the lack of a measurable TR jet velocity. There is trace tricuspid regurgitation. Pulmonic Valve: The pulmonic valve is not well seen, but is grossly normal. There is no pulmonic valvular regurgitation. Great Vessels: The aortic root is normal size. The ascending aorta could not be visualized. The IVC is of normal diameter and collapses greater than 50% with a sniff. This suggests a low right atrial pressure of 3 mm Hg. Pericardium/ Pleura There is no pericardial effusion. There is an anterior echo-free space consistent with a fat pad. There is no pleural effusion. MMode/2D Measurements & Calculations LVIDd: 4.2 cm LVOT diam: 2.0 cm LVIDs: 2.9 cm Ao root diam: 3.4 cm FS: 29.6 % IVSd: 0.96 cm LVPWd: 0.92 cm LV harper. diameter/BSA (cm/m^2): 2.7 LV sys. diameter/BSA (cm/m^2): 1.9 LA A2 area: 20.2 cm2 RA long axis: 4.4 cm LA A4 area: 17.0 cm2 RA area: 9.9 cm2 LA length (vol): 5.2 cm RA vol: 18.8 ml LA vol: 55.9 ml RA : 12.0 ml/m2 LA vol index: 35.5 ml/m2 TAPSE: 1.7 cm Doppler Measurements & Calculations LVOT Max Manuel: 78.8 cm/sec MV E max manuel: 55.8 cm/sec LV V1 max P.5 mmHg MV A max manuel: 64.3 cm/sec LV V1 VTI: 19.5 cm MV E/A: 0.87 Med Peak E' Manuel: 6.2 cm/sec E/E' med: 9.1 Lat Peak E' Manuel: 8.7 cm/sec E/E' lat: 6.4 E/e' average: 7.7 MV dec time: 0.22 sec SV(LVOT): 62.9 ml Reading Physician:03:00 PM
== END ==
PROVIDERS: PCP Family Medicine; Referring Provider Family Medicine; Visit Provider Family Medicine
DX: R00.0 Tachycardia, unspecified (principal); R00.2 Palpitations; I34.0 Nonrheumatic mitral (valve) insufficiency
CPT/HCPCS: 93306

== ENCOUNTER → 2023-07-27 12:49 | Outpatient (CLI) | payer MEDICARE, OTHER, SELFPAY | PROVIDERS: PCP Family Medicine; Referring Provider Family Medicine; Visit Provider Family Medicine | DX: I48.91 Unspecified atrial fibrillation (principal); I48.92 Unspecified atrial flutter | CPT/HCPCS: 93246 ==

== ENCOUNTER → 2024-04-11 08:48 | Outpatient (CLI) | payer MEDICARE, OTHER, SELFPAY ==
[2024-04-11 12:35] LABS: Add Manual Diff / Slide Review NO; Basophils Absolute Auto 100 /uL (0-100); Basophils Percent Auto 0.9 % (0-2); Eosinophils Absolute Auto 100 /uL (0-450); Eosinophils Percent Auto 1.2 % (2-4); Hematocrit 39.4 % (36-46); Hemoglobin 13.3 g/dL (12.0-16.0); Lymphocytes Absolute Auto 2000 /uL (1100-4500); Lymphocytes Percent Auto 19.4 % (25-40); Mean Corpuscular HGB Conc 33.8 % (30-36); Mean Corpuscular Hemoglobin 32.9 PG (26-34); Mean Corpuscular Volume 97.4 fL (80-100); Monocytes Absolute Auto 1000 /uL (0-900); Monocytes Percent Auto 9.2 % (3-14); Neutrophils Absolute Auto 7300 /uL (1500-7000); Neutrophils Percent Auto 69.3 % (50-75); Platelet Count 349 X10^3/uL (150-400); Red Blood Cell Count 4.05 X10^6/uL (4.0-5.2); Red Cell Distribution Width 13.8 % (11.6-14.8); White Blood Cell Count 10.5 X10^3/uL (4.5-11.0)
[2024-04-11 13:35] LABS: Alanine Aminotransferase 15 IU/L (<35); Albumin 4.7 g/dL (3.5-5.0); Albumin Globulin Ratio 1.7 (1.0-2.8); Alkaline Phosphatase 89 U/L (38-126); Aspartate Aminotransferase 24 IU/L (14-36); BUN Creatinine Ratio 13.8 (6-22); Bilirubin Total 1.2 mg/dL (0.2-1.3); Blood Urea Nitrogen 13 mg/dL (7-17); Calcium 9.8 mg/dL (8.4-10.2); Carbon Dioxide 25 mmol/L (22-32); Chloride 104 mmol/L (98-107); Estimated Glomerular Filt Rate > 60 mL/min (>60); Globulin 2.8 g/dL (1.7-4.1); Glucose 99 mg/dL (80-110); HEMOLYSIS < 15 (0-50); Potassium 4.9 mmol/L (3.4-5.1); Sodium 139 mmol/L (137-145); Total Protein 7.5 g/dL (6.3-8.2)
[2024-04-11 14:10] LABS: TSH w/ Reflex to FT4 2.32 uIU/mL (0.47-4.68)
[2024-04-11 14:43] LABS: Folate 5.9 ng/mL (2.76-20.0); Vitamin B12 284 pg/mL (239-931)
== END ==
PROVIDERS: Family Provider Family Medicine; PCP Family Medicine; Referring Provider Family Medicine; Visit Provider Family Medicine
DX: R41.89 Other symptoms and signs involving cognitive functions and awareness (principal)
CPT/HCPCS: 36415; 80053; 82607; 82746; 84443; 85025

== ENCOUNTER → 2024-04-13 13:26 | Outpatient (CLI) | payer MEDICARE, OTHER, SELFPAY ==
--- NOTE | 2024-04-13 13:29 | DI.MRI.S_ITS ---
PROCEDURE: MR HEAD/BRAIN WO/W CON INDICATIONS: memory loss TECHNIQUE: Noncontrast axial T1 spin echo, axial T2 fast spin echo, sagittal and axial FLAIR, coronal T2 fast spin echo, axial gradient echo, axial diffusion and ADC through the brain. After the administration of contrast, axial and coronal and sagittal T1 spin echo with fat saturation through the brain. COMPARISON: None. FINDINGS: Image quality: Excellent. CSF spaces: Basal cisterns are patent. No extra-axial fluid collections. Ventricles are normal in size and shape. Brain: No midline shift. No intracranial bleeds or masses. No abnormal intracranial enhancement. Small encephalomalacia and gliosis within the left frontal lobe, consistent with chronic infarct. There is cerebral volume loss for age. There is periventricular white matter chronic small vessel ischemic change. The brainstem appears normal. Diffusion-weighted images demonstrate no acute infarct. No chronic ischemic insults. Normal intravascular flow voids are present. Skull and face: Calvarial marrow is normal in signal. Bilateral lens replacements. Otherwise, the orbits are unremarkable. Sinuses: Diffuse paranasal sinus mucosal thickening, most pronounced within the right sphenoid sinus. mastoids appear clear. IMPRESSION: 1. No acute or subacute infarct. No acute intracranial abnormalities. 2. Moderate age-related global volume loss and chronic microvascular ischemic changes. 3. Small area of encephalomalacia and gliosis in the left frontal lobe, consistent with chronic infarct. 4. Paranasal sinus disease, most pronounced within the right sphenoid sinus. Dictated by: Amari Mancia M.D. on 04/13/2024 at 15:05 Approved by: Amari Mancia M.D. on 04/13/2024 at 15:09
== END ==
PROVIDERS: Family Provider Family Medicine; PCP Family Medicine; Referring Provider Family Medicine; Visit Provider Family Medicine
DX: G93.89 Other specified disorders of brain (principal); J32.3 Chronic sphenoidal sinusitis; R41.89 Other symptoms and signs involving cognitive functions and awareness
CPT/HCPCS: 70553; A9579

== ENCOUNTER → 2025-01-09 14:08 | Outpatient (CLI) | payer MEDICARE, OTHER, SELFPAY ==
--- NOTE | 2025-01-09 14:11 | DI.RAD.S_ITS ---
PROCEDURE: XR DEXA AXIAL SKELETON INDICATIONS: osteoprosis COMPARISON: None. FINDINGS: Lumbar Spine: Bone mineral density is 0.88 g/cm2, T score -1.2, decreased by 3%. Left Femoral Neck: Bone mineral density 0.475 g/cm2, T score -3.4. Left Hip: Bone mineral density 0.562 g/cm2, T score -3.1, decreased by 13.4%. Fracture Risk Calculation (when applicable): 10-year fracture risk of a major osteoporotic fracture 25 percent and of a hip fracture 11 percent. (T score greater or equal to -1.0 to: NORMAL) (T score from -1.1 to -2.4: OSTEOPENIA) (T score less than or equal to -2.5: OSTEOPOROSIS) IMPRESSION: Osteoporosis by WHO classification. Follow-up guidelines as follows: Osteoporosis: Consider a repeat DEXA and Vertebral Fracture Assessment (VFA) exam in 2 years or sooner if medically necessary, to reassess this patient's status. Osteopenia: Consider a repeat DEXA in 2-3 years to reassess this patient's status, or if there is a new clinical indication. Normal: Consider a repeat DEXA in 5 years or sooner, or if there is a new clinical indication. All treatment decisions require clinical judgment and consideration of individual patient factors, including patient preferences, comorbidities, previous drug use, risk factors not captured in the FRAX model (e.g., frailty, falls, vitamin D deficiency, increased bone turnover, interval significant decline in bone density ) and possible under- or over-estimation of fracture risk by FRAX. In addition, the NOF Guide recommends that FDA-approved medical therapies be considered in postmenopausal women and men age >= 50 years with a: * Hip or vertebral (clinical or morphometric) fracture * T-score of <=-2.5 at the spine or hip * Ten-year fracture probability by FRAX of >= 3% for hip fracture or >=20% for major osteoporotic fracture. Dictated by: Amari Mancia M.D. on 01/09/2025 at 16:40 Approved by: Amari Mancia M.D. on 01/09/2025 at 16:40
== END ==
PROVIDERS: Family Provider Family Medicine; PCP Family Medicine; Referring Provider Family Medicine; Visit Provider Family Medicine
DX: M81.0 Age-related osteoporosis without current pathological fracture (principal)
CPT/HCPCS: 77080

== ENCOUNTER → 2025-06-11 10:58 | Outpatient (CLI) | payer MEDICARE, OTHER, SELFPAY ==
[2025-06-11 12:57] LABS: TSH w/ Reflex to FT4 2.12 uIU/mL (0.47-4.68)
[2025-06-11 13:16] LABS: Vitamin B12 571 pg/mL (239-931)
== END ==
PROVIDERS: Family Provider Family Medicine; PCP Family Medicine; Referring Provider Physician Assistant; Visit Provider Physician Assistant
DX: E03.9 Hypothyroidism, unspecified (principal); E53.8 Deficiency of other specified B group vitamins
CPT/HCPCS: 36415; 82607; 84443

== ENCOUNTER → 2025-07-29 13:57 | Outpatient (CLI) | payer MEDICARE, OTHER, SELFPAY ==
[2025-07-29 14:16] LABS: Add Manual Diff / Slide Review NO; Hematocrit 41.0 % (36-46); Hemoglobin 13.8 g/dL (12.0-16.0); Lymphocytes Absolute Auto 2400 /uL (1100-4500); Mean Corpuscular HGB Conc 33.7 % (30-36); Mean Corpuscular Hemoglobin 30.3 PG (26-34); Mean Corpuscular Volume 90.1 fL (80-100); Platelet Count 389 X10^3/uL (150-400)
[2025-07-29 14:32] LABS: Alanine Aminotransferase 22 IU/L (<35); Albumin 4.3 g/dL (3.5-5.0); Albumin Globulin Ratio 1.4 (1.0-2.8); Alkaline Phosphatase 98 U/L (38-126); Blood Urea Nitrogen 14 mg/dL (7-17); Calcium 9.4 mg/dL (8.4-10.2); Carbon Dioxide 23 mmol/L (22-32); Chloride 103 mmol/L (98-107); Estimated Glomerular Filt Rate 47 mL/min (>60); Globulin 3.1 g/dL (1.7-4.1); Glucose 140 mg/dL (70-99); HEMOLYSIS < 15 (0-50); Potassium 4.7 mmol/L (3.4-5.1); Sodium 136 mmol/L (137-145); Total Protein 7.4 g/dL (6.3-8.2)
[2025-07-29 15:02] LABS: Thyroid Stimulating Hormone 1.99 uIU/mL (0.47-4.68)
== END ==
PROVIDERS: Family Provider Family Medicine; PCP Family Medicine; Referring Provider Family Medicine; Visit Provider Family Medicine
DX: G40.909 Epilepsy, unspecified, not intractable, without status epilepticus (principal); E03.9 Hypothyroidism, unspecified
CPT/HCPCS: 36415; 80053; 84443; 85025